=== PATIENT | male | born 1975 | race Caucasian/White ===

== ENCOUNTER 2016-04-13 05:37 | Inpatient (IN) | payer OTHER ==
[~2016-04-13] VITALS: Ht 190.5 cm; Wt 80.7 kg
[2016-04-13] VITALS (15 sets, daily range): BP systolic 124–142; BP diastolic 79–95
[~2016-04-13 05:37] MED LIST: CYCLOBENZAPRINE10 MG ORAL; FLUTICASONE PRO16 G1 NASAL; KLONOPIN1 MG ORAL; STOOL SOFTENER50 M1 PO; VICOD PO; ZYRTEC10 MG ORAL
[2016-04-13] MEDS ORDERED: SYNTHROID200 MCG ORAL (06:06)
[2016-04-13] MEDS ORDERED: Bacitracin 50000 Units Vial ONE (06:48)
[2016-04-13] MEDS ORDERED: Depo-Medrol 80mg Vial ONE (06:48)
[2016-04-13] MEDS ORDERED: LR 1000ml ONE (07:00)
[2016-04-13] MEDS ORDERED: fentaNYL 100 mcg/2 mL IV ONE (07:00)
[2016-04-13] MEDS ORDERED: Sterile Water Irrig 1000ml IRRIG ONE (07:00)
[2016-04-13] MEDS ORDERED: Propofol 10mg/ml 20ml IV ONE (07:00)
[2016-04-13] MEDS ORDERED: Midazolam 2mg/2ml Inj ONE (07:00)
[2016-04-13] MEDS ORDERED: NS Irrig 1000ml ONE (07:00)
[2016-04-13] MEDS ORDERED: Bupivacaine 0.25% Inj 30ml INJ ONE (07:20)
--- NOTE | 2016-04-13 07:21 | Pre-Procedure Note/Attestation ---
Pre-Procedure Note/Attestation Complete Prior to Procedure Planned Procedure: bilateral Procedure Narrative: left total replacement and right hip injection depomedrol and marcaine Attestation I attest that I discussed the nature of the procedure; its benefits; risks and complications; and alternatives (and the risks and benefits of such alternatives ), prior to the procedure, with the patient (or the patient's legal career services representative). I attest that, if there was a reasonable possibility of needing a blood transfusion, the patient (or the patient's legal career services representative) was given the [facility] standardized written summary, pursuant to the Carlos Callahan Blood Safety Act ([place] Health and Safety Code # 1645, as amended). I attest that I re-evaluated the patient just prior to the surgery and that there has been no change in the patient's H&P, except as documented below: ANGELIQUE WHITMAN Apr 13, 2016 07:21
--- NOTE | 2016-04-13 07:36 | Anethesia Preoperative Eval ---
Anesthesia Pre-op PMH/ROS General Date of Evaluation: Apr 13, 2016 Time of Evaluation: 07:15 Anesthesiologist: Donta ASA Score: ASA 3 Mallampati Score Class I : Soft palate, uvula, fauces, pillars visible Class II: Soft palate, uvula, fauces visible Class III: Soft palate, base of uvula visible Class IV: Only hard plate visible Mallampati Classification: Class II Surgeon: Babar Diagnosis: AVN left hip Surgical Procedure: Left THR, steroid injection right hip with fluoro Family History: no anesthesia problems Allergies: Coded Allergies: No Known Allergies (Unverified , 04/12/16) Medications: see eMAR Past Medical History Cardiovascular: Reports: HTN, Denies: CAD, RI, arrhythmia, other, valve dz Pulmonary: Denies: COPD, MANOJ, asthma, other Gastrointestinal/Genitourinary: Reports: other - S/P kidney transplant 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 Exam Physician Exam Last Vital Signs Date Time Temp Pulse Resp B/P Pulse Ox O2 Delivery O2 Flow Rate FiO2 04/13/16 06:08 98.1 88 20 131/84 98 Constitutional: NAD Neurologic: CN 2-12 intact Cardiovascular: RRR, no M/R/G Respiratory: CTA Gastrointestinal: S/NT/ND Airway Exam Mallampati Score: Class II MO: full ROM: full Teeth: intact Anesthesia Pre-op A/P Labs WNL Studies Pre-op Studies: EKG - NSR Risk Assessment & Plan Assessment: AVN left hip Plan: GA, LMA, lumbar plexus block for post op pain Status Change Before Surgery: No Pre-Antibiotics Drug: Ancef Given Within 1 Hr of Incision: Yes Time Given: 07:45 ROSINA LAZARO M.D. Apr 13, 2016 07:36
[2016-04-13] MEDS ORDERED: Norco 7.5mg/325mg tab ORAL PRN (07:45)
[2016-04-13] MEDS ORDERED: Milk of Magnesia 30ml Ud ORAL PRN (07:45)
[2016-04-13] MEDS ORDERED: Morphine Sulfate 4mg/ml Inj IVP PRN (07:45)
[2016-04-13] MEDS ORDERED: Morphine Sulfate 2mg/ml Inj IVP PRN ×3 (07:45→16:30)
[2016-04-13] MEDS ORDERED: Ropivacaine 5mg/ml Vial 20ml INJ ONE (08:44)
[2016-04-13] MEDS: Pericolace tab ORAL SCH ×2 (09:00→17:55)
[2016-04-13] MEDS: Docusate 100mg cap ORAL SCH ×3 (09:00→17:55)
[2016-04-13] MEDS: Enoxaparin 40mg Inj SUBQ SCH (09:00)
--- NOTE | 2016-04-13 09:40 | Immediate Post-Op Evaluation ---
Immediate Post-Op Evalulation Immediate Post-Op Evalulation Procedure: Left total hip replacement Date of Evaluation: Apr 13, 2016 Time of Evaluation: 09:45 IV Fluids: 900 Estimated Blood Loss: 100 Urinary Output: 150 Blood Pressure Systolic: 121 Blood Pressure Diastolic: 79 Pulse Rate: 90 Respiratory Rate: 19 O2 Sat by Pulse Oximetry: 100 Temperature (Fahrenheit): 97.3 Pain Score (1-10): 2 Nausea: No Vomiting: No Patient Status: awake, patent, none Hydration Status: adequate Drug: Ancef Given Within 1 Hr of Incision: Yes Time Given: 07:45 ROSINA LAZARO M.D. Apr 13, 2016 09:39
[2016-04-13] MEDS ORDERED: LR 1000ml 1,000 ML IVLG SCH (09:49)
[2016-04-13] MEDS ORDERED: Hydromorphone 0.5mg/0.5ml inj ONE (09:50)
[2016-04-13] MEDS ORDERED: LR 1000ml 1,000 ML IV SCH (10:00)
[2016-04-13] MEDS ORDERED: LORazepam Inj 2mg/ml 1ml IV PRN (10:00)
[2016-04-13] MEDS ORDERED: Meperidine 25mg/ml Inj IV PRN (10:00)
[2016-04-13] MEDS ORDERED: Hydromorphone 0.5mg/0.5ml inj IVP PRN (10:00)
--- NOTE | 2016-04-13 11:01 | General Progress Note ---
Assessment/Plan Assessment/Plan s/p THR AVN hip depression anxiety HTN hypothyroidism s/p kidney transplant 1. incentive spirometry 2. Lovenox 3. PT evaluation and therapy 4. Hydration 5. Pain management 6. discharge once stable with outpatient follow up Subjective Allergies: Coded Allergies: No Known Allergies (Unverified , 04/12/16) Subjective asked to follow up for medical Objective Last 24 Hour Vital Signs Date Time Temp Pulse Resp B/P Pulse Ox O2 Delivery O2 Flow Rate FiO2 04/13/16 10:40 83 14 127/83 100 Nasal Cannula 3.0 04/13/16 10:25 78 19 130/88 100 Nasal Cannula 3.0 04/13/16 10:20 97.3 04/13/16 10:10 80 16 127/87 100 Nasal Cannula 3.0 04/13/16 10:00 79 12 133/87 100 Nasal Cannula 3.0 04/13/16 09:50 84 28 129/92 100 Simple Mask 6.0 04/13/16 09:45 81 15 129/88 100 Simple Mask 6.0 04/13/16 09:40 83 18 124/82 100 Simple Mask 6.0 04/13/16 09:39 90 19 100 04/13/16 09:35 97.3 83 14 130/88 100 Simple Mask 6.0 04/13/16 06:08 98.1 88 20 131/84 98 Intake and Output 04/12/16 04/13/16 19:00 07:00 # Voids 1 Height (Feet): 6 Height (Inches): 3.00 Weight (Pounds): 178 Objective WDWN NAD clear breath sounds bilaterally without rhonchi or wheeze [id number] without MRG NABS nontender no HSM no CCE nonfocal MARCEL HILLIARD Apr 13, 2016 11:01
--- NOTE | 2016-04-13 11:30 | Diagnostic Imaging Report ---
Indication: Pain Technique: 2 views of the left hip Comparison: The Findings: There is flattening of the superior aspect of the left femoral head. There is subchondral sclerosis. The joint space is preserved. No definite acute fractures. No dislocations. Impression: Abnormal left femoral head, appearance is highly suggestive of avascular necrosis. Correlate with clinical findings
--- NOTE | 2016-04-13 11:38 | Diagnostic Imaging Report ---
Indication: PAIN Technique: Digital intraoperative images Comparison: None Findings: Intraoperative images demonstrate a needle projected over the midportion of the right femoral head neck junction Impression: Intraoperative imaging, as described
[2016-04-13] MEDS ORDERED: Cyclobenzaprine 10mg Tab ORAL PRN (12:30)
[2016-04-13 13:21] LABS: MEAN CORPUSCULAR HEMOGLOBIN 30.4 PG (27.0-31.0); MEAN CORPUSCULAR HGB CONC 32.5 G/DL (32.0-36.0); MEAN CORPUSCULAR VOLUME 94 FL (80-99); MEAN PLATELET VOLUME 6.8 FL (6.5-10.1); PLATELET COUNT 220 K/UL (150-450); RED BLOOD COUNT 4.04 M/UL (4.70-6.10); RED CELL DISTRIBUTION WIDTH 12.1 % (11.6-14.8); WHITE BLOOD COUNT 9.7 K/UL (4.8-10.8)
[2016-04-13 13:32] LABS: INR 1.1 (0.9-1.1); PROTHROMBIN TIME 10.9 SEC (9.30-11.50)
[2016-04-13 13:36] LABS: ANION GAP 12 (5-15); CARBON DIOXIDE 27 mEQ/L (20-30); CHLORIDE 100 mEQ/L (98-107); CREATININE 1.2 mg/dL (0.7-1.2); GLOMERULAR FILTRATION RATE > 60 mL/min (>60); HEMOLYSIS 6; POTASSIUM 5.3 mEQ/L (3.4-4.9); SODIUM 139 mEQ/L (135-145)
[2016-04-13 14:13] LABS: BAND NEUTROPHILS % (MANUAL) 0 % (0-8); BASOPHILS % (MANUAL) 0 % (0-2); EOSINOPHILS % (MANUAL) 0 % (0-3); LYMPHOCYTES % (MANUAL) 5 % (20-45); NEUTROPHILS % (MANUAL) 88 % (45-75); PLATELET ESTIMATE ADEQUATE; PLATELET MORPHOLOGY NORMAL; TOTAL CELLS COUNTED 100
[2016-04-13] MEDS ORDERED: D5 1/2NS w/KCl 20mEq 1,000 ML IV SCH (15:00)
[2016-04-13] MEDS ORDERED: ceFAZolin sod 1 GM in D5W 55 ML IV SCH (15:00)
--- NOTE | 2016-04-13 16:03 | Consultation ---
Consult Note Assessment/Plan A/ 1) Acute Gouty attack 2) Kidney transplant P/ 1) NSAIDS C/I 2/2 kidney transplant. Pain currently being managed with medication. Will order x-rays for further evaluation 2) Cont Abx as prescribed 3) Will follow Thank you Galen Galarza DPM Apr 13, 2016 16:03
[2016-04-13] MEDS: ceFAZolin sod 1 GM in D5W 55 ML IV SCH (16:10)
[2016-04-13] MEDS ORDERED: Naloxone 0.4mg/ml Inj IVP PRN ×2 (16:30→23:45)
[2016-04-13] MEDS ORDERED: Rate Change PCA 1 Each MISC PRN ×2 (16:30→23:45)
[2016-04-13] MEDS: PCA Morphine 1mg/ml 30 ML IV PRN ×2 (17:03→23:27)
[2016-04-13] MEDS: Morphine Sulfate 4mg/ml Inj SUBQ PRN ×2 (17:55→21:08)
--- NOTE | 2016-04-13 20:28 | Consultation ---
DATE OF CONSULTATION: 04/13/2016 CONSULTING PHYSICIAN: Galen Carty D.P.M. REQUESTING PHYSICIAN: Lalo Eckert M.D. REASON FOR CONSULTATION: Possible gouty attack, right foot. HISTORY OF PRESENT ILLNESS: The patient is a 41-year-old male, who was admitted today status post a total hip replacement of the left hip secondary to avascular necrosis. The patient states that he has had gouty attacks in the past that presented in similar fashion with some redness, pain, and swelling of the joint. The patient said that in his prior attacks, the condition auto resolved, was concerned about his pain level, but now it is again controlled by pain medication secondary to his procedure today. Currently, the patient is bed bound in a hip immobilizer. is at bedside. PAST MEDICAL HISTORY: Significant for avascular necrosis of left hip, depression, anxiety, hypertension, hypothyroidism, and status post kidney transplant. ALLERGIES: He has no known drug allergies. MEDICATIONS: Per MAR and currently include cefazolin, Lovenox, morphine for pain management and Mims for pain management. FAMILY HISTORY AND SOCIAL HISTORY: Noncontributory. REVIEW OF SYSTEMS: HEENT: The patient denies any headaches, blurred vision, or ringing in the ears. Cardiorespiratory: The patient denies any chest pain or shortness of breath. Genitourinary: The patient denies any urgency, frequency, burning upon urination, or hematuria. Gastrointestinal: The patient denies any constipation, diarrhea, or blood in the stools. PHYSICAL EXAMINATION: VITAL SIGNS: Currently temperature is 97.3, pulse is 81, respirations are 21, blood pressure is 133/79, and saturating 100% on room air. EXTREMITIES: Lower extremities, 2+ palpable dorsalis pedis and posterior tibial arteries noted on the right foot. There is mild edema noted on the first metatarsophalangeal joint region. There is no cyanosis of the toes noted. DERMATOLOGICAL: There is erythema and increased warmth noted on the first metatarsophalangeal joint region. Remaining dermatological exam is unremarkable. MUSCULOSKELETAL: The patient has 4/5 muscle strength noted in anterolateral and posterior muscle groups of the right lower extremity. No gross deformities are noted. NEUROLOGICAL: Protective thresholds intact on the right. LABORATORY AND DIAGNOSTIC DATA: INR is 1.1. White blood cell count is 9.7, hemoglobin and hematocrit is 12.3 and 37.8, and platelet count is 220,000. Glucose is 115, creatinine 1.2, and BUN is 19. No lower extremity imaging is noted. ASSESSMENT: 1. Acute gouty attack. 2. Status post kidney transplant. PLAN: 1. NSAIDS at this point is contraindicated due to his kidney transplant. The pain is currently being managed with medication. We will order x-rays for further evaluation. 2. Continue antibiotics as prescribed. 3. We will follow. Thank you for the courtesy of this consultation, Dr. Eckert. Galen Carty D.P.M. DR: JEREMIE JOB#: [id number] CC: ANAY
[2016-04-13] MEDS ORDERED: PCA shift volume MISC SCH (23:00)
[2016-04-14] VITALS: BP 133/87
[2016-04-14] MEDS: ceFAZolin sod 1 GM in D5W 55 ML IV SCH (00:15)
[2016-04-14] MEDS: PCA HYDROmorphone 1mg/ml 30 ML IV PRN (00:17)
[2016-04-14 04:00] VITALS: BP 133/87
[2016-04-14] MEDS: DiphenhydrAMINE 50mg/ml Inj IVP PRN ×3 (05:16→19:22)
[2016-04-14 07:05] LABS: BASOPHILS % (AUTO) 0.3 % (0.0-2.0); EOSINOPHILS % (AUTO) 0.3 % (0.0-3.0); LYMPHOCYTES % (AUTO) 10.9 % (20.0-45.0); MEAN CORPUSCULAR HEMOGLOBIN 31.1 PG (27.0-31.0); MEAN CORPUSCULAR HGB CONC 33.1 G/DL (32.0-36.0); MEAN CORPUSCULAR VOLUME 94 FL (80-99); MEAN PLATELET VOLUME 7.5 FL (6.5-10.1); MONOCYTES % (AUTO) 12.5 % (1.0-10.0); PLATELET COUNT 208 K/UL (150-450); RED BLOOD COUNT 3.54 M/UL (4.70-6.10); RED CELL DISTRIBUTION WIDTH 12.2 % (11.6-14.8); WHITE BLOOD COUNT 7.2 K/UL (4.8-10.8)
--- NOTE | 2016-04-14 07:14 | 48 Hour Post Anesthesia Eval ---
Post Anesthesia Evaluation Procedure: Left total hip replacement Date of Evaluation: Apr 14, 2016 Time of Evaluation: 07:12 Blood Pressure Systolic: 133 0: 80 Pulse Rate: 85 Respiratory Rate: 18 Temperature (Fahrenheit): 97.5 O2 Sat by Pulse Oximetry: 100 Airway: patent Nausea: No Vomiting: No Pain Intensity: 3 Hydration Status: adequate Cardiopulmonary Status: Stable Mental Status/LOC: patient returned to baseline Follow-up Care/Observations: 0 Post-Anesthesia Complications: 0 Follow-up care needed: N/A Sanjeev Francois MD Apr 14, 2016 07:13
[2016-04-14 07:21] LABS: INR 1.1 (0.9-1.1); PROTHROMBIN TIME 11.1 SEC (9.30-11.50)
[2016-04-14] MEDS: PCA shift volume MISC SCH ×3 (07:23→23:11)
[2016-04-14 07:26] LABS: ANION GAP 9 (5-15); CARBON DIOXIDE 30 mEQ/L (20-30); CHLORIDE 98 mEQ/L (98-107); GLOMERULAR FILTRATION RATE > 60 mL/min (>60); HEMOLYSIS 0; POTASSIUM 4.4 mEQ/L (3.4-4.9); SODIUM 137 mEQ/L (135-145)
[2016-04-14 08:00] VITALS: BP 135/87
[2016-04-14] MEDS: Docusate 100mg cap ORAL SCH ×3 (08:44→17:56)
[2016-04-14] MEDS: Pericolace tab ORAL SCH ×2 (08:44→17:56)
[2016-04-14] MEDS: Flonase Nasal Inhaler 16gm NASAL SCH (08:44)
[2016-04-14] MEDS: Enoxaparin 40mg Inj SUBQ SCH (08:49)
--- NOTE | 2016-04-14 09:02 | General Progress Note ---
Assessment/Plan Assessment/Plan s/p THR AVN hip depression anxiety HTN hypothyroidism s/p kidney transplant 1. incentive spirometry 2. Lovenox 3. PT evaluation and therapy 4. Hydration 5. Pain management with SUPERINTENDENT MEASUREMENT 6. discharge once stable with outpatient follow up Subjective Allergies: Coded Allergies: No Known Allergies (Unverified , 04/12/16) Subjective significant pain overnight on SUPERINTENDENT MEASUREMENT Objective Last 24 Hour Vital Signs Date Time Temp Pulse Resp B/P Pulse Ox O2 Delivery O2 Flow Rate FiO2 04/14/16 08:00 19 04/14/16 07:13 85 18 100 04/14/16 04:07 18 04/14/16 04:00 97.5 85 18 133/87 100 Nasal Cannula 2.0 04/14/16 00:00 18 04/14/16 00:00 97.7 91 18 133/87 99 Nasal Cannula 2.0 04/13/16 21:38 97.9 04/13/16 20:00 97.9 98 20 131/89 100 Room Air 04/13/16 17:44 97.9 04/13/16 16:20 97.9 87 20 142/95 100 Nasal Cannula 2.0 04/13/16 15:15 97.3 04/13/16 11:57 97.3 81 21 133/79 100 Room Air 04/13/16 11:10 97.8 78 16 131/87 100 Nasal Cannula 3.0 04/13/16 10:55 78 15 135/86 100 Nasal Cannula 3.0 04/13/16 10:55 97.8 04/13/16 10:40 83 14 127/83 100 Nasal Cannula 3.0 04/13/16 10:25 78 19 130/88 100 Nasal Cannula 3.0 04/13/16 10:20 97.3 04/13/16 10:10 80 16 127/87 100 Nasal Cannula 3.0 04/13/16 10:00 79 12 133/87 100 Nasal Cannula 3.0 04/13/16 09:50 84 28 129/92 100 Simple Mask 6.0 04/13/16 09:45 81 15 129/88 100 Simple Mask 6.0 04/13/16 09:40 83 18 124/82 100 Simple Mask 6.0 04/13/16 09:39 90 19 100 04/13/16 09:35 97.3 83 14 130/88 100 Simple Mask 6.0 Intake and Output 04/13/16 04/14/16 19:00 07:00 Intake Total 1100 ml 1490 ml Output Total 250 ml 3050 ml Balance 850 ml -1560 ml Intake Oral 1040 ml IV Total 1100 ml 450 ml Output Urine Total 150 ml 3050 ml Estimated Blood Loss 100 ml Laboratory Tests 04/13/16 13:15: White Blood Count 9.7, Red Blood Count 4.04L, Hemoglobin 12.3L, Hematocrit 37.8L , Mean Corpuscular Volume 94, Mean Corpuscular Hemoglobin 30.4, Mean Corpuscular Hemoglobin Concent 32.5, Red Cell Distribution Width 12.1, Platelet Count 220, Mean Platelet Volume 6.8, Neutrophils (%) (Auto) , Lymphocytes (%) ( Auto) , Monocytes (%) (Auto) , Eosinophils (%) (Auto) , Basophils (%) (Auto) , Differential Total Cells Counted 100, Neutrophils % (Manual) 88H, Lymphocytes % (Manual) 5L, Monocytes % (Manual) 7, Eosinophils % (Manual) 0, Basophils % ( Manual) 0, Band Neutrophils 0, Platelet Estimate Adequate, Platelet Morphology Normal, Red Blood Cell Morphology Normal, Prothrombin Time 10.9, Prothromb Time International Ratio 1.1, Activated Partial Thromboplast Time 28, Sodium Level 139, Potassium Level 5.3H, Chloride Level 100, Carbon Dioxide Level 27, Anion Gap 12, Blood Urea Nitrogen 19, Creatinine 1.2, Estimat Glomerular Filtration Rate > 60, Glucose Level 115H, Calcium Level 9.0 04/14/16 05:20: White Blood Count 7.2, Red Blood Count 3.54L, Hemoglobin 11.0L, Hematocrit 33.2L , Mean Corpuscular Volume 94, Mean Corpuscular Hemoglobin 31.1H, Mean Corpuscular Hemoglobin Concent 33.1, Red Cell Distribution Width 12.2, Platelet Count 208, Mean Platelet Volume 7.5, Neutrophils (%) (Auto) 76.0H, Lymphocytes ( %) (Auto) 10.9L, Monocytes (%) (Auto) 12.5H, Eosinophils (%) (Auto) 0.3, Basophils (%) (Auto) 0.3, Prothrombin Time 11.1, Prothromb Time International Ratio 1.1, Activated Partial Thromboplast Time 29, Sodium Level 137, Potassium Level 4.4, Chloride Level 98, Carbon Dioxide Level 30, Anion Gap 9, Blood Urea Nitrogen 11, Creatinine 1.0, Estimat Glomerular Filtration Rate > 60, Glucose Level 119H, Calcium Level 9.0 Height (Feet): 6 Height (Inches): 3.00 Weight (Pounds): 178 Objective WDWN NAD clear breath sounds bilaterally without rhonchi or wheeze [id number] without MRG NABS nontender no HSM no CCE nonfocal MARCEL HILLIARD Apr 14, 2016 09:02
--- NOTE | 2016-04-14 10:25 | Diagnostic Imaging Report ---
Indication: Pain Comparison: None Findings: 3 views of the right foot were obtained. There is soft tissue prominence at the first MTP joint. Cystlike a bunion. Alignment of the MTP joint is normal. No fracture or malalignment identified. Impression: Soft tissue prominence in the area of the first MTP joint likely a bunion.
--- NOTE | 2016-04-14 11:33 | General Progress Note ---
Progress Note Progress Note doing well ambulating XRAY post op not done---reinformed nurse this needs to be done stat neurovascular intact hgb 11 stable continue therapty ANGELIQUE WHITMAN Apr 14, 2016 11:33
--- NOTE | 2016-04-14 11:34 | Brief Operative Note ---
Immediate Post Operative Note Operative Note Chief Complaint: left hip pain Pre-op Diagnosis: left hip arthritis Procedure: left hip repalcement Post-op Diagnosis: left hip oa Post-op Diagnosis: same as pre-op Findings: consistent w/pre-op dx studies Surgeon: mian Anesthesia: general Specimen: yes Complications: none Condition: stable Estimated Blood Loss: minimal Implant(s) used?: Yes ANGELIQUE WHITMAN Apr 14, 2016 11:34
[2016-04-14 12:00] VITALS: BP 128/93
--- NOTE | 2016-04-14 13:58 | Podiatric Progress Note ---
Assessment/Plan Patient Michael Jaquez is a 41 year old male who was admitted on Apr 13, 2016 at 05:37 with Problems: Assessment/Plan A/ 1) Acute Gouty attack - resolving 2) Kidney transplant P/ 1) X-rays reviewed 2) Cont pain management 3) Will follow PRN Subjective Allergies: Coded Allergies: No Known Allergies (Unverified , 04/12/16) Subjective Patient in pain from going down to get hip x-ray. No pain in foot. Objective Exam Last 24 Hour Vital Signs Date Time Temp Pulse Resp B/P Pulse Ox O2 Delivery O2 Flow Rate FiO2 04/14/16 12:00 18 04/14/16 12:00 98.1 99 22 128/93 99 Room Air 04/14/16 08:00 97.9 88 20 135/87 97 Room Air 04/14/16 08:00 19 04/14/16 07:13 85 18 100 04/14/16 04:07 18 04/14/16 04:00 97.5 85 18 133/87 100 Nasal Cannula 2.0 04/14/16 00:00 18 04/14/16 00:00 97.7 91 18 133/87 99 Nasal Cannula 2.0 04/13/16 21:38 97.9 04/13/16 20:00 97.9 98 20 131/89 100 Room Air 04/13/16 17:44 97.9 04/13/16 16:20 97.9 87 20 142/95 100 Nasal Cannula 2.0 04/13/16 15:15 97.3 Laboratory Tests Test 04/14/16 05:20 White Blood Count 7.2 K/UL (4.8-10.8) Red Blood Count 3.54 M/UL (4.70-6.10) L Hemoglobin 11.0 G/DL (14.2-18.0) L Hematocrit 33.2 % (42.0-52.0) L Mean Corpuscular Volume 94 FL (80-99) Mean Corpuscular Hemoglobin 31.1 PG (27.0-31.0) H Mean Corpuscular Hemoglobin Concent 33.1 G/DL (32.0-36.0) Red Cell Distribution Width 12.2 % (11.6-14.8) Platelet Count 208 K/UL (150-450) Mean Platelet Volume 7.5 FL (6.5-10.1) Neutrophils (%) (Auto) 76.0 % (45.0-75.0) H Lymphocytes (%) (Auto) 10.9 % (20.0-45.0) L Monocytes (%) (Auto) 12.5 % (1.0-10.0) H Eosinophils (%) (Auto) 0.3 % (0.0-3.0) Basophils (%) (Auto) 0.3 % (0.0-2.0) Prothrombin Time 11.1 SEC (9.30-11.50) Prothromb Time International Ratio 1.1 (0.9-1.1) Activated Partial Thromboplast Time 29 SEC (23-33) Sodium Level 137 mEQ/L (135-145) Potassium Level 4.4 mEQ/L (3.4-4.9) Chloride Level 98 mEQ/L (98-107) Carbon Dioxide Level 30 mEQ/L (20-30) Anion Gap 9 (5-15) Blood Urea Nitrogen 11 mg/dL (7-23) Creatinine 1.0 mg/dL (0.7-1.2) Estimat Glomerular Filtration Rate > 60 mL/min (>60) Glucose Level 119 mg/dL (74-106) H Calcium Level 9.0 mg/dL (8.6-10.2) Dermatological Dermatological Narrative Erythema and edema right 1st MPJ improved, nearly resolved Galen Carty DPM Apr 14, 2016 13:58
--- NOTE | 2016-04-14 15:16 | Diagnostic Imaging Report ---
Indications: Status post left hip arthroplasty Technique: Portable AP view of the left hip Findings: Comparison: 04/13/16 Left femoral head and neck of the resected. Left acetabular and femoral prosthetic components appear well seated and in anatomic alignment. Femoral prosthetic component incompletely imaged. No abnormal surrounding lucency is present. Overlying soft tissues are swollen with gas bubbles. Overlying skin thomas are present.. IMPRESSION: Status post left hip arthroplasty, incompletely imaged.
[2016-04-14 16:00] VITALS: BP 139/88
[2016-04-14 20:00] VITALS: BP 136/86
[2016-04-14] MEDS ORDERED: DiphenhydrAMINE 50mg/ml Inj IVP PRN (21:30)
[2016-04-15] VITALS: BP 130/80
[2016-04-15] MEDS: PCA HYDROmorphone 1mg/ml 30 ML IV PRN (00:28)
[2016-04-15 05:57] LABS: BASOPHILS % (AUTO) 0.4 % (0.0-2.0); LYMPHOCYTES % (AUTO) 16.6 % (20.0-45.0); MEAN CORPUSCULAR HEMOGLOBIN 30.9 PG (27.0-31.0); MEAN CORPUSCULAR HGB CONC 33.1 G/DL (32.0-36.0); MEAN CORPUSCULAR VOLUME 93 FL (80-99); MEAN PLATELET VOLUME 7.5 FL (6.5-10.1); MONOCYTES % (AUTO) 15.9 % (1.0-10.0); NEUTROPHILS % (AUTO) 66.1 % (45.0-75.0); PLATELET COUNT 215 K/UL (150-450); RED BLOOD COUNT 3.68 M/UL (4.70-6.10); WHITE BLOOD COUNT 6.5 K/UL (4.8-10.8)
[2016-04-15] MEDS ORDERED: Milk of Magnesia 30ml Ud ORAL ONE (06:00)
[2016-04-15 06:19] LABS: ANION GAP 12 (5-15); CALCIUM 9.3 mg/dL (8.6-10.2); CARBON DIOXIDE 29 mEQ/L (20-30); CHLORIDE 93 mEQ/L (98-107); CREATININE 1.1 mg/dL (0.7-1.2); GLOMERULAR FILTRATION RATE > 60 mL/min (>60); HEMOLYSIS 0; POTASSIUM 3.7 mEQ/L (3.4-4.9); SODIUM 134 mEQ/L (135-145)
[2016-04-15] MEDS: PCA shift volume MISC SCH ×2 (07:00→15:27)
--- NOTE | 2016-04-15 07:21 | General Progress Note ---
Assessment/Plan Assessment/Plan s/p THR AVN hip depression anxiety HTN hypothyroidism s/p kidney transplant 1. incentive spirometry 2. Lovenox 3. PT evaluation and therapy 4. Hydration 5. Pain management with OBGYN NURSE 6. discharge once stable with outpatient follow up 7. MOM, dulcolax, movantik Subjective Allergies: Coded Allergies: No Known Allergies (Unverified , 04/12/16) Subjective significant pain and constipation Objective Last 24 Hour Vital Signs Date Time Temp Pulse Resp B/P Pulse Ox O2 Delivery O2 Flow Rate FiO2 04/15/16 04:00 16 04/15/16 00:00 98.1 93 18 130/80 96 Room Air 04/15/16 00:00 18 04/14/16 20:00 98.2 94 19 136/86 99 Room Air 04/14/16 20:00 16 04/14/16 16:00 98.2 97 19 139/88 97 Room Air 04/14/16 16:00 16 04/14/16 12:00 18 04/14/16 12:00 98.1 99 22 128/93 99 Room Air 04/14/16 08:00 97.9 88 20 135/87 97 Room Air 04/14/16 08:00 19 Intake and Output 04/14/16 04/15/16 19:00 07:00 Intake Total 450 ml 885 ml Output Total 1000 ml 2900 ml Balance -550 ml -2015 ml Intake Oral 360 ml IV Total 450 ml 525 ml Output Urine Total 1000 ml 2900 ml Laboratory Tests 04/15/16 04:25: White Blood Count 6.5, Red Blood Count 3.68L, Hemoglobin 11.4L, Hematocrit 34.4L , Mean Corpuscular Volume 93, Mean Corpuscular Hemoglobin 30.9, Mean Corpuscular Hemoglobin Concent 33.1, Red Cell Distribution Width 12.0, Platelet Count 215, Mean Platelet Volume 7.5, Neutrophils (%) (Auto) 66.1, Lymphocytes (% ) (Auto) 16.6L, Monocytes (%) (Auto) 15.9H, Eosinophils (%) (Auto) 1.0, Basophils (%) (Auto) 0.4, Sodium Level 134L, Potassium Level 3.7, Chloride Level 93L, Carbon Dioxide Level 29, Anion Gap 12, Blood Urea Nitrogen 9, Creatinine 1.1, Estimat Glomerular Filtration Rate > 60, Glucose Level 93, Calcium Level 9.3 Height (Feet): 6 Height (Inches): 3.00 Weight (Pounds): 178 Objective WDWN NAD clear breath sounds bilaterally without rhonchi or wheeze [id number] without MRG NABS nontender no HSM no CCE nonfocal MARCEL HILLIARD Apr 15, 2016 07:21
[2016-04-15 08:00] VITALS: BP 143/84
--- NOTE | 2016-04-15 08:14 | General Progress Note ---
Progress Note Progress Note doing good ambulating xray great but need to show whole prostehsis neurovascular intact cont therapy ANGELIQUE WHITMAN Apr 15, 2016 08:14
[2016-04-15] MEDS: Pericolace tab ORAL SCH (08:43)
[2016-04-15] MEDS: Docusate 100mg cap ORAL SCH (08:43)
[2016-04-15] MEDS: Flonase Nasal Inhaler 16gm NASAL SCH (08:44)
[2016-04-15] MEDS: Enoxaparin 40mg Inj SUBQ SCH (08:48)
[2016-04-15] MEDS ORDERED: Fleet's Mineral Oil Enema RECTAL ONE (09:00)
--- NOTE | 2016-04-15 09:11 | Consultation ---
History of Present Illness General Date patient seen: Apr 15, 2016 Present Illness Allergies: Coded Allergies: No Known Allergies (Unverified , 04/12/16) Medication History Scheduled Cetirizine Hcl* (Zyrtec*), 10 MG ORAL DAILY, (Reported) Cyclobenzaprine Hcl* (Flexeril*), 10 MG ORAL THREE TIMES A DAY, (Reported) Docusate Sodium (Stool Softener), 50 MG PO NEEDED, (Reported) Fluticasone Propionate* (Fluticasone Propionate*), 2 SPRAY NASAL DAILY, ( Reported) Levothyroxine Sodium (Synthroid), 250 MCG ORAL DAILY, (Reported) [Vicod], MG PO Q8, (Reported) Scheduled PRN Clonazepam* (Klonopin*), 1 MG ORAL TID PRN for For Anxiety, (Reported) Patient History Healthcare decision maker PATIENT Resuscitation status Full Code Advanced Directive on File Physical Exam Last 24 Hour Vital Signs Date Time Temp Pulse Resp B/P Pulse Ox O2 Delivery O2 Flow Rate FiO2 04/15/16 04:00 16 04/15/16 00:00 98.1 93 18 130/80 96 Room Air 04/15/16 00:00 18 04/14/16 20:00 98.2 94 19 136/86 99 Room Air 04/14/16 20:00 16 04/14/16 16:00 98.2 97 19 139/88 97 Room Air 04/14/16 16:00 16 04/14/16 12:00 18 04/14/16 12:00 98.1 99 22 128/93 99 Room Air Intake and Output 04/14/16 04/15/16 19:00 07:00 Intake Total 450 ml 885 ml Output Total 1000 ml 2900 ml Balance -550 ml -2015 ml Intake Oral 360 ml IV Total 450 ml 525 ml Output Urine Total 1000 ml 2900 ml Laboratory Tests Test 04/15/16 04:25 White Blood Count 6.5 K/UL (4.8-10.8) Red Blood Count 3.68 M/UL (4.70-6.10) L Hemoglobin 11.4 G/DL (14.2-18.0) L Hematocrit 34.4 % (42.0-52.0) L Mean Corpuscular Volume 93 FL (80-99) Mean Corpuscular Hemoglobin 30.9 PG (27.0-31.0) Mean Corpuscular Hemoglobin Concent 33.1 G/DL (32.0-36.0) Red Cell Distribution Width 12.0 % (11.6-14.8) Platelet Count 215 K/UL (150-450) Mean Platelet Volume 7.5 FL (6.5-10.1) Neutrophils (%) (Auto) 66.1 % (45.0-75.0) Lymphocytes (%) (Auto) 16.6 % (20.0-45.0) L Monocytes (%) (Auto) 15.9 % (1.0-10.0) H Eosinophils (%) (Auto) 1.0 % (0.0-3.0) Basophils (%) (Auto) 0.4 % (0.0-2.0) Sodium Level 134 mEQ/L (135-145) L Potassium Level 3.7 mEQ/L (3.4-4.9) Chloride Level 93 mEQ/L (98-107) L Carbon Dioxide Level 29 mEQ/L (20-30) Anion Gap 12 (5-15) Blood Urea Nitrogen 9 mg/dL (7-23) Creatinine 1.1 mg/dL (0.7-1.2) Estimat Glomerular Filtration Rate > 60 mL/min (>60) Glucose Level 93 mg/dL (74-106) Calcium Level 9.3 mg/dL (8.6-10.2) Height (Feet): 6 Height (Inches): 3.00 Weight (Pounds): 178 Medications Current Medications Medications (Trade) Dose Ordered Sig/Latoya Route PRN Reason Start Time Stop Time Status Last Admin Dose Admin Acetaminophen/ Hydrocodone Bitart 1 ea 1 ea Q4H PRN ORAL Moderate Pain (Pain Scale 4-6) 04/15/16 16:45 04/22/16 16:44 Bisacodyl (Dulcolax) 10 mg DAILYPRN PRN RECTAL Constipation 04/14/16 16:00 05/14/16 15:59 04/14/16 21:03 Cetirizine HCl (ZyrTEC) 10 mg DAILY ORAL 04/14/16 09:00 05/14/16 08:59 04/15/16 08:44 Clonazepam (KlonoPIN) 2 mg Q4H PRN ORAL For Anxiety 04/13/16 12:30 04/20/16 12:29 04/14/16 13:35 Cyclobenzaprine HCl (Flexeril) 10 mg THREE TIMES A DAY PRN ORAL Muscle Spasm 04/13/16 12:30 05/13/16 12:29 04/15/16 08:44 Diphenhydramine HCl (Benadryl) 50 mg Q6H PRN IVP Itching/Pruritis 04/14/16 21:30 05/14/16 21:29 Docusate Sodium (Colace) 100 mg THREE TIMES A DAY ORAL 04/13/16 09:00 05/13/16 08:59 04/15/16 08:43 Enoxaparin Sodium (Lovenox) 40 mg DAILY SUBQ 04/13/16 09:00 04/23/16 08:59 04/15/16 08:48 Fluticasone Propionate (Flonase) 2 spray DAILY NASAL 04/14/16 09:00 05/14/16 08:59 04/15/16 08:44 Hydromorphone HCl (Dilaudid) 2 mg Q4H PRN SUBQ Moderate Pain (Pain Scale 4-6) 04/13/16 23:45 04/15/16 23:44 04/14/16 13:45 Hydromorphone HCl (Dilaudid) 2 mg q3h PRN SUBQ Severe Pain (Pain Scale 7-10) 04/13/16 23:45 04/15/16 23:44 Hydromorphone HCl (CHILD CARE TEACHER Dilaudid) 30 ml @ 0 mls/hr Q24H PRN IV For Pain 04/13/16 23:45 04/15/16 23:44 04/15/16 00:28 Levothyroxine Sodium (Synthroid) 100 mcg DAILY@0630 ORAL 04/14/16 06:30 05/14/16 06:29 04/15/16 05:40 Levothyroxine Sodium (Synthroid) 150 mcg DAILY@0630 ORAL 04/14/16 06:30 05/14/16 06:29 04/15/16 05:40 Magnesium Hydroxide (Mom) 30 ml DAILYPRN PRN ORAL Constipation 04/13/16 07:45 05/13/16 07:44 04/14/16 13:36 Miscellaneous Medication (CHILD CARE TEACHER Rate Change) 1 ea DAILY PRN MISC rate change 04/13/16 23:45 04/15/16 23:44 Miscellaneous Medication (CHILD CARE TEACHER shift volume) 1 ea Q8HR@07,,23 MISC 04/14/16 07:00 04/16/16 06:59 04/15/16 07:00 Naloxone HCl (Narcan) 0.1 mg Q1M PRN IVP RR<10/min OR SBP<90 mmHg 04/13/16 23:45 04/15/16 23:44 Non-Formulary Medication (Non-Formulary Med) 1 ea DAILY ORAL 04/15/16 09:00 05/15/16 08:59 UNV Ondansetron HCl (Zofran) 4 mg Q6H PRN IVP Nausea & Vomiting 04/13/16 23:45 04/15/16 23:44 Senna/Docusate Sodium (Tereza-Colace) 1 ea TWICE A DAY ORAL 04/13/16 09:00 05/13/16 08:59 04/15/16 08:43 Sodium Chloride 1,000 ml @ 75 mls/hr [id number] IV 04/13/16 22:45 05/13/16 22:44 04/15/16 00:20 Assessment/Plan Assessment/Plan (1) Left hip pain (2) Left hip OA (3) Left hip Avascular necrosis (4) S/p Total hip replacement Seen Dictated. CHEN GOODWIN PMary Apr 15, 2016 09:11
[2016-04-15] MEDS ORDERED: Lactulose 20gm/30ml UDC ORAL PRN (09:15)
[2016-04-15] MEDS ORDERED: Norco 10mg/325mg tab ORAL PRN (09:15)
[2016-04-15] MEDS ORDERED: HYDROmorphone 1mg/ml Carpuject IVP PRN (09:15)
--- NOTE | 2016-04-15 11:09 | Diagnostic Imaging Report ---
Indications: Status post left hip arthroplasty Technique: Portable AP view of the left hip Findings: Comparison: Left hip radiographs 04/13/16 Left femoral head and neck have been resected. Left acetabular and femoral prosthetic components have been placed, appear well seated and in anatomic alignment. No abnormal surrounding lucency is present. Overlying soft tissues are swollen with gas bubbles. Overlying skin thomas are present. Wheatley catheter in place. Upper pelvis excluded from image. IMPRESSION: Status post left hip arthroplasty.
[2016-04-15 12:00] VITALS: BP 110/73
[2016-04-15] MEDS ORDERED: MOVANTIK 25 MG ORAL SCH (13:00)
[2016-04-15 16:00] VITALS: BP 120/86
[2016-04-15] MEDS ORDERED: Morphine Sulfate 4mg/ml Inj IVP PRN (16:30)
[2016-04-15] MEDS ORDERED: Norco 7.5mg/325mg tab ORAL PRN (16:45)
[2016-04-15] MEDS ORDERED: ASPIRIN325 MG ORAL ×2 (19:22→19:26)
[2016-04-15] MEDS ORDERED: 1/2 NS 1000ml IV ONE (20:29)
[2016-04-15] MEDS ORDERED: NS 275ml ONE (20:29)
[2016-04-15] MEDS ORDERED: Tubing IV Secondary IV ONE (20:29)
--- NOTE | 2016-04-15 21:28 | Consultation ---
DATE OF CONSULTATION: 04/15/2016 PAIN MANAGEMENT CONSULTATION CONSULTING PHYSICIAN: Lorin Lee M.D. REFERRING PHYSICIAN: Lalo Eckert M.D. CHIEF COMPLAINT: Left hip pain. HISTORY OF PRESENT ILLNESS: This is a [id number] who is being seen on the Med/Surg floor of [facility] for initial comprehensive pain management. The patient reports that he has been having left hip pain since July 2015. It is constant, acute pain, aching, dull, stabbing, 10/10 pain increased with movement. Nothing has been helping to relieve the pain. The patient is here under the care of Dr. Eckert and Dr. Lai status post left total hip replacement on Tuesday, which was done due to avascular necrosis and osteoarthritis. The patient reports a history of kidney transplant and history of thyroid carcinoma. He was taken Adolphus 10/325 mg 2 to 3 tablets a day as an outpatient. At this time, he is on a CRUSHER LOADER EQUIPMENT OPERATOR Dilaudid, which he has used 13 mg over in the last 24 hours, however, it causes severe constipation. He was started on Movantik as per Dr. Lai. Discussed with the patient about starting him on lactulose for constipation and increasing the Adolphus to 10/325 mg one tablet every 4 hours as needed for moderate pain and changing the Dilaudid 1 mg IV every 3 hours as needed for severe pain and adding Lidoderm patch to apply to the left hip 12 hours on and 12 hours off. The patient seems to understand and agrees and he is understanding with the plan. PAST MEDICAL HISTORY: Papillary thyroid carcinoma and kidney failure. PAST SURGICAL HISTORY: Total thyroidectomy and hip removal and kidney transplant. SOCIAL HISTORY: He drinks alcohol occasionally. Denies tobacco and IV drug abuse. ALLERGIES: No known drug allergies. MEDICATIONS: Zyrtec, Flexeril, stool softener, fluticasone, Synthroid, Adolphus and Klonopin. REVIEW OF SYSTEMS: Denies rash, fever, chills, sweating, dizziness, drowsiness, blurred vision, sore throat or change in weight. No shortness of breath or chest pain. No nausea, vomiting, or blood in the stool or urine. No bowel or bladder incontinence. No dysuria. He is complaining of constipation and left hip pain. PHYSICAL EXAMINATION: GENERAL: Alert, awake, and oriented x3. VITAL SIGNS: Blood pressure 130/80, heart rate is 83, oxygen saturation is 96%, and temperature 98.1 degrees Fahrenheit. Height is 6 feet 3 inches and weight is 170 pounds. HEENT: PERRLA. NECK: Range of motion is full in all directions. No tenderness. No adenopathy. LUNGS: Clear. HEART: Regular. ABDOMEN: Benign. EXTREMITIES: Back range of motion is decreased in flexion and extension due to patient's pain and condition with tenderness to paraspinal muscles. No tenderness to trapezius or rhomboid muscles. Upper extremity range of motion is full in all directions. Motor is intact. No cyanosis. No clubbing. No edema. Sensory is intact. Reflexes are unobtainable. Lower extremity range of motion is reduced due to the patient's condition with surgical wounds noted and thomas seen at the left hip with tenderness to palpation. No cyanosis. No clubbing. Sensory is intact. Reflexes are unobtainable. No adenopathy. ASSESSMENT AND PLAN: This is a 41-year-old male with left hip osteoarthritis, left hip avascular necrosis and left hip pain status post total hip replacement. The patient will be discontinued off the CRUSHER LOADER EQUIPMENT OPERATOR Dilaudid and Adolphus 7.5/325 mg and will be started on lactulose 30 g dose 4 times a day as needed for constipation, Adolphus 10/325 mg one tablet every 4 hours as needed for moderate pain and Dilaudid 1 mg IV every 3 hours as needed for severe pain and Lidoderm patch to be applied to the left hip 12 hours on and 12 hours off. The patient was discussed with Dr. Lee and Dr. Lee concurred. We will follow up the patient. Thank you very much for the courtesy of this consultation. Lorin Lee M.D. DELORES [place] DR: EUGENE JOB#: [id number] CC: ANAY
--- NOTE | 2016-04-16 11:48 | Discharge Summary ---
Discharge Summary Hospital Course Date of Admission Apr 13, 2016 at 05:37 Date of Discharge Apr 15, 2016 at 20:30 Admitting Diagnosis HPI Michael Jaquez is a 41 year old male who was admitted on Apr 13, 2016 at 05:37 for Left Hip Avn Hospital Course [id number] Discharge Discharge Disposition Patient was discharged to Home (01) Discharge Diagnoses: Yesi Tovar NP Apr 16, 2016 11:48
--- NOTE | 2016-04-16 21:28 | Operative Note - Dictated ---
DATE OF OPERATION: 04/13/2016 PREOPERATIVE DIAGNOSES: 1. Right hip effusion secondary to avascular necrosis, minor osteoarthritis. 2. Left hip end-stage osteoarthritis with flexion and adduction contracture. 3. Left hip avascular necrosis. POSTOPERATIVE DIAGNOSES: 1. Right hip effusion secondary to avascular necrosis, minor osteoarthritis. 2. Left hip end-stage osteoarthritis with flexion and adduction contracture. 3. Left hip avascular necrosis. PROCEDURES: 1. Right hip injection. 2. Left total hip replacement, modifier 22 secondary to difficulty with the Jamie Alloclassic #4 stem and 56 cup with 3.5 head neutral liner. 3. Adductor contracture release, modifier 22 secondary to difficulty. 4. Synovectomy, modifier 22 secondary to difficulty. SURGEON: Lalo Eckert M.D. LAUNDRY MACHINE TENDER: Unknown. DIRECTOR OF CARDIAC REHABILITATION: None. PREOPERATIVE NOTE: This is a pleasant gentleman, who has a very difficult problem. This young person had AVN and failed the cord decompression. He has end-stage OA with flexion contracture and adduction contracture. I explained to him the surgery and risks being infection, bleeding, anesthetic risks, neurovascular damage, DVT, PE, and failure of the operation. He had a kidney transplant and cannot take anti-inflammatories. Consents were obtained. OPERATIVE ROOM NOTE: Under the benefit of endotracheal intubation and general anesthetic, the right hip was injected with Depo-Medrol and Marcaine. We then prepped and draped the left hip and placed him in a lateral decubitus position. A gram of Ancef was given. He was prepped and draped. I made a posterolateral incision, incised through subcutaneous tissue down through short external rotators doing T-capsulectomy removing the labrum. The hip was significantly degenerated, the bone was . An osteotomy above the lesser trochanter. Then, started identifying the acetabulum. First, my and I started reaming, started with a #46, #48, #50, #52, #54, #55, accepting the #56 cup in 15 degrees of anteversion and 40 degrees of abduction. The actual cup was banged in. It was solid. There was no need for any screws. The liner was placed in, which was a 40 IB liner. I then started to work on the femur with 10 to 15 degrees of anteversion. I started broaching. I started with a 0, 1, 2, 1, 2, 2, 3, and a 4, placing a 4 and 4 was deemed to be perfect with a nice press-fit. I then looked in my x-rays and 4 was deemed to definitely be perfect. I then proceeded to place the actual 4 stem in after irrigating the wound copiously. First, neutral and then a 3.5 head in and reduced it. He had full range of motion, full stability. Leg lengths were equal in accordance to Dr. Jose Jean leg length comparison methods. I was very pleased and I used the normal head as an anatomic template. I then irrigated the wound copiously identifying the pre and post exposure was completely intact. There were no complications. Modifier 22 secondary to difficulty due to youth and age of the case and comorbidity with the kidney transplant. An adductor contracture release was done as well as a synovectomy. The patient went to recovery room in stable condition. There were no complications during this procedure. Lalo Eckert M.D. DR: BRUCE JOB#: [id number] CC:
--- NOTE | 2016-04-17 01:18 | Discharge Summary 2 SIG ---
DATE OF ADMISSION: 04/13/2016 DATE OF DISCHARGE: 04/15/2016 CONSULTANTS: 1. Derrick Lai M.D. 2. Galen Carty D.P.M. 3. Lorin Lee M.D. BRIEF HOSPITAL COURSE: The patient is a 41-year-old male with past medical history of renal transplant and osteonecrosis of the hip secondary to steroids, was admitted on 04/13/2016 and underwent left hip replacement. Postoperatively, he was given pain management and Lovenox for DVT prophylaxis. He was encouraged to use of incentive spirometry. Dr. Carty was consulted for evaluation of gout attack on the right foot. Unable to give NSAIDs secondary to kidney disease. Pain management was consulted. He was given bowel regimen for constipation. He was ambulating well with neurovascular intact. The patient was eventually discharged home to follow up as outpatient. FINAL DIAGNOSES: 1. Left hip avascular necrosis status post left hip replacement. 2. Depression. 3. Anxiety. 4. Hypertension. 5. Hypothyroidism. 6. Possible gout attack right foot. 7. Status post kidney transplant. 8. Constipation. Lalo Eckert M.D. I have been assigned to dictate discharge summary on this account and I was not involved in the patient's management. Yesi Tovar N.P. DR: ROMARIO JOB#: [id number] CC: ANAY
== END 2016-04-15 20:30 | disposition home or self-care (01) | DRG 470 ==
LOC: SDSOVERFLO 05:37 → 3E 11:33
PROC: 3E0U3BZ Introduction of Anesthetic Agent into Joints, Percutaneous Approach (ICD-10-PCS; principal; 2016-04-13 07:00)
PROC: 0SRB02A Replacement of Left Hip Joint with Metal on Polyethylene Synthetic Substitute, Uncemented, Open Approach (ICD-10-PCS; principal; 2016-04-13 07:00)
PROC: 0SBB0ZZ Excision of Left Hip Joint, Open Approach (ICD-10-PCS; principal; 2016-04-13 07:00)
PROC: 3E0U33Z Introduction of Anti-inflammatory into Joints, Percutaneous Approach (ICD-10-PCS; principal; 2016-04-13 07:00)
DX: M16.12 Unilateral primary osteoarthritis, left hip (principal); M87.851 Other osteonecrosis, right femur; I10 Essential (primary) hypertension; M87.852 Other osteonecrosis, left femur; Z94.0 Kidney transplant status; M24.552 Contracture, left hip; F41.9 Anxiety disorder, unspecified; F32.9 Major depressive disorder, single episode, unspecified; M10.9 Gout, unspecified; K59.00 Constipation, unspecified; Z85.850 Personal history of malignant neoplasm of thyroid; E89.0 Postprocedural hypothyroidism
CPT/HCPCS: 36415; 72170; 73502; 76000; 80048; 85007; 85025; 85610; 85730; 86850; 86900; 86901; 86920; 87081; 94003; 94150; C9399; J2180; J2250; J2405

== ENCOUNTER 2016-09-14 05:10 | Inpatient (IN) | payer OTHER ==
[2016-09-14] VITALS (15 sets, daily range): BP systolic 128–144; BP diastolic 62–98
[~2016-09-14] VITALS: Ht 190.5 cm; Wt 83.5 kg
[~2016-09-14 05:10] MED LIST changes: +ASPIRIN325 MG ORAL; +CIALIS5 MG PO; +COLCHICINE0.6 M1 PO; +PERCOCET 5-3251 EACH ORAL; +SYNTHROID200 MCG ORAL
[2016-09-14] MEDS ORDERED: ceFAZolin sod 2 GM in D5W 110 ML IV SCH (05:30)
[2016-09-14] MEDS ORDERED: DOCUSATE SODIU250 MG ORAL (05:56)
[2016-09-14] MEDS ORDERED: ZYRTEC10 MG ORAL (05:56)
[2016-09-14] MEDS ORDERED: SYNTHROID125 MCG ORAL (05:56)
[2016-09-14] MEDS ORDERED: NASACORT10.8 ML NS (05:56)
[2016-09-14] MEDS ORDERED: KLONOPIN1 MG ORAL (05:57)
[2016-09-14] MEDS ORDERED: Bacitracin 50000 Units Vial ONE (06:30)
[2016-09-14] MEDS ORDERED: Sterile Water Irrig 1000ml IRRIG ONE (07:00)
[2016-09-14] MEDS ORDERED: LR 1000ml ONE (07:00)
[2016-09-14] MEDS ORDERED: Zemuron 50mg/5ml Inj IV ONE (07:00)
[2016-09-14] MEDS ORDERED: Propofol 10mg/ml 20ml IV ONE (07:00)
[2016-09-14] MEDS ORDERED: Midazolam 2mg/2ml Inj ONE ×2 (07:00)
[2016-09-14] MEDS ORDERED: fentaNYL 100 mcg/2 mL IV ONE (07:00)
[2016-09-14] MEDS ORDERED: NS Irrig 1000ml ONE (07:00)
--- NOTE | 2016-09-14 07:12 | Pre-Procedure Note/Attestation ---
Pre-Procedure Note/Attestation Complete Prior to Procedure Planned Procedure: right Procedure Narrative: right total hip Indications for Procedure Pre-Operative Diagnosis: right hip arthrirtius Attestation I attest that I discussed the nature of the procedure; its benefits; risks and complications; and alternatives (and the risks and benefits of such alternatives ), prior to the procedure, with the patient (or the patient's legal pharmaceutical specialty representative). I attest that, if there was a reasonable possibility of needing a blood transfusion, the patient (or the patient's legal pharmaceutical specialty representative) was given the [facility] standardized written summary, pursuant to the [place] Blood Safety Act ([place] Health and Safety Code # 1645, as amended). I attest that I re-evaluated the patient just prior to the surgery and that there has been no change in the patient's H&P, except as documented below: ANGELIQUE WHITMAN Sep 14, 2016 07:12
[2016-09-14] MEDS ORDERED: Morphine Sulfate 2mg/ml Inj IVP PRN ×2 (07:30)
[2016-09-14] MEDS ORDERED: Morphine Sulfate 4mg/ml Inj IVP PRN (07:30)
--- NOTE | 2016-09-14 07:44 | Brief Operative Note ---
Immediate Post Operative Note Operative Note Pre-op Diagnosis: right hip arthrirtius Procedure: right hip pain Post-op Diagnosis: right hip replacement Post-op Diagnosis: same as pre-op Surgeon: mian Anesthesia: general Specimen: yes Complications: none Condition: stable Estimated Blood Loss: minimal Implant(s) used?: Yes ANGELIQUE WHITMAN Sep 14, 2016 07:44
[2016-09-14] MEDS ORDERED: Bupivacaine 0.25% Inj 30ml INJ ONE (07:48)
[2016-09-14] MEDS ORDERED: LR 1000ml 1,000 ML IVLG SCH (08:23)
[2016-09-14] MEDS ORDERED: LR 1000ml 1,000 ML IV SCH (08:30)
[2016-09-14] MEDS ORDERED: LORazepam Inj 2mg/ml 1ml IV PRN (08:30)
[2016-09-14] MEDS ORDERED: Meperidine 25mg/0.5ml Inj (FOR RIGORS ONLY) IV PRN (08:30)
[2016-09-14] MEDS ORDERED: DiphenhydrAMINE 50mg/ml Inj IVP PRN (08:30)
[2016-09-14] MEDS ORDERED: Hydromorphone 0.5mg/0.5ml inj IVP PRN (08:30)
--- NOTE | 2016-09-14 08:34 | Anethesia Preoperative Eval ---
Anesthesia Pre-op PMH/ROS General Date of Evaluation: Sep 14, 2016 Time of Evaluation: 07:00 Anesthesiologist: Donta ASA Score: ASA 3 Mallampati Score Class I : Soft palate, uvula, fauces, pillars visible Class II: Soft palate, uvula, fauces visible Class III: Soft palate, base of uvula visible Class IV: Only hard plate visible Mallampati Classification: Class II Surgeon: Babar Diagnosis: OA right hip Surgical Procedure: Right THR Family History: no anesthesia problems Allergies: Coded Allergies: No Known Allergies (Unverified , 04/12/16) Medications: see eMAR Past Medical History Cardiovascular: Reports: HTN, Denies: CAD, IA, arrhythmia, other, valve dz Pulmonary: Reports: other - Allergic rhinitis, Denies: COPD, MANOJ, asthma Gastrointestinal/Genitourinary: Reports: other - Hypertensive nephropathy s/p renal transplant, Denies: CRI, ESRD, GERD Neurologic/Psychiatric: Denies: CVA, TIA, dementia, depression/anxiety, other Endocrine: Reports: hypothyroidism - s/p thyroidectomy secondary to thyroid CA , steroids - 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 PSxH Narrative: Left THR, renal transplant Anesthesia Pre-op Phys. Exam Physician Exam Last Vital Signs Date Time Temp Pulse Resp B/P Pulse Ox O2 Delivery O2 Flow Rate FiO2 09/14/16 05:50 98.2 62 20 143/92 99 Room Air Constitutional: NAD Neurologic: CN 2-12 intact Cardiovascular: RRR, no M/R/G Respiratory: CTA Gastrointestinal: S/NT/ND Airway Exam Mallampati Score: Class II MO: full ROM: full Teeth: intact Anesthesia Pre-op A/P Labs WNL Studies Pre-op Studies: EKG - SR with suggested IWMI on EKG (doubtful) Risk Assessment & Plan Assessment: OA right hip in hypertensive renal transplant patient Plan: GA, lumbar plexus block for post op pain (surgeon request) Status Change Before Surgery: No Pre-Antibiotics Drug: Ancef Given Within 1 Hr of Incision: Yes Time Given: 07:30 ROSINA LAZARO M.D. Sep 14, 2016 08:34
--- NOTE | 2016-09-14 08:35 | Immediate Post-Op Evaluation ---
Immediate Post-Op Evalulation Immediate Post-Op Evalulation Procedure: Right THR Date of Evaluation: Sep 14, 2016 Time of Evaluation: 09:35 IV Fluids: 1500 Estimated Blood Loss: 100 Urinary Output: 400 Blood Pressure Systolic: 129 Blood Pressure Diastolic: 87 Pulse Rate: 80 Respiratory Rate: 13 O2 Sat by Pulse Oximetry: 97 Temperature (Fahrenheit): 98.5 Pain Score (1-10): 3 Nausea: No Vomiting: No Complications No complication Patient Status: awake, patent, extubated, none Hydration Status: adequate Drug: Ancef Given Within 1 Hr of Incision: Yes Time Given: 07:30 ROSINA LAZARO M.D. Sep 14, 2016 08:35
--- NOTE | 2016-09-14 08:55 | General Progress Note ---
Assessment/Plan Assessment/Plan (1) Right hip pain (2) Right hip OA (3) S/p Right THR Patient will be started on PHARMACY TECHNICIAN INSTRUCTOR Dilaudid 0.2mg Q6min, [place] 10/325mg and Dilaudid 1mg IV Q4H PRN mod-severe pain D/w Dr. Lee and he agrees Thank you for the courtesy of this consultation. Subjective Date patient seen: Sep 14, 2016 Allergies: Coded Allergies: No Known Allergies (Unverified , 04/12/16) Subjective REVIEW OF SYSTEMS: Denies rash, fever, chills, sweating, dizziness, drowsiness, blurred vision, sore throat or change in weight. No shortness of breath or chest pain. No nausea, vomiting, or blood in the stool or urine. No bowel or bladder incontinence. No dysuria. He is complaining of right hip pain. SUBJECTIVE: Patient is a known patient from prior admission and now returns under the care of Dr. Lopez for right hip replacement. We were consulted so patient would have pain control while here in the hospital. Objective Last 24 Hour Vital Signs Date Time Temp Pulse Resp B/P Pulse Ox O2 Delivery O2 Flow Rate FiO2 09/14/16 05:50 98.2 62 20 143/92 99 Room Air Height (Feet): 6 Height (Inches): 3.00 Weight (Pounds): 184 Objective GENERAL: Alert, awake, and oriented x3. HEENT: PERRLA. NECK: Range of motion is full in all directions. No tenderness. No adenopathy. LUNGS: Clear. HEART: Regular. ABDOMEN: Benign. Back: range of motion is decreased in flexion and extension due to patient's pain and condition with tenderness to paraspinal muscles. No tenderness to trapezius or rhomboid muscles. EXTREMITIES: Upper extremity range of motion is full in all directions. Motor is intact. No cyanosis. No clubbing. No edema. Sensory is intact. Reflexes are unobtainable. Lower extremity range of motion is reduced due to the patient's pain and condition. Right hip bandages applied with tenderness to palpation. No cyanosis. No clubbing. Sensory is intact. Reflexes are unobtainable. No adenopathy. CHEN GOODWIN Sep 14, 2016 08:55
[2016-09-14] MEDS ORDERED: D5 1/2NS w/KCl 20mEq 1,000 ML IV SCH ×2 (09:30→21:30)
[2016-09-14] MEDS ORDERED: Rate Change PCA 1 Each MISC PRN (10:00)
[2016-09-14] MEDS ORDERED: PCA HYDROmorphone 1mg/ml 30 ML IV PRN (10:00)
[2016-09-14] MEDS ORDERED: Naloxone 0.4mg/ml Inj IVP PRN (10:00)
--- NOTE | 2016-09-14 11:15 | Diagnostic Imaging Report ---
Indication: Pain Technique: 2 views of the right hip Comparison: Pelvis radiograph dated 04/14/2016 Findings: On one of 2 views, there is suggestion of significant abnormalities of the superior aspect of the right femoral head, with suggestion of flattening and osteochondral fracture deformity. This is much less apparent on the orthogonal image, however, is less apparent on the previous exam . No acute fractures. No dislocations. Joint spaces are preserved Impression: Findings on one of 2 views are suggestive of osteonecrosis of the right femoral head. However, it is uncertain the extent to which this is a real finding given lack of similar findings on the orthogonal view. Suspect findings are real, as patient has history of left hip osteonecrosis as well.
--- NOTE | 2016-09-14 11:57 | Diagnostic Imaging Report ---
Indication: POST-OP right hip total arthroplasty Technique: One view of the pelvis Comparison: 04/14/2016 Findings: Interim right hip total arthroplasty. Good anatomic alignment of the prosthesis. Retained air from surgical exposure is seen within the soft tissues. Wheatley catheter is present within the bladder. Prior left hip arthroplasty also again demonstrated Impression: Postoperative right hip, as described. No unusual features
[2016-09-14] MEDS: ceFAZolin 2gm/50ml Premix 50 ML IV SCH ×2 (15:01→23:44)
[2016-09-14] MEDS: DiphenhydrAMINE 50mg/ml Inj IVP PRN ×2 (16:02→23:43)
[2016-09-14] MEDS: Relistor 12mg/0.6ml Vial SUBQ SCH ×2 (18:00→23:49)
[2016-09-14] MEDS: PCA shift volume MISC SCH (19:00)
--- NOTE | 2016-09-14 20:28 | Cardiology Progress Note ---
Assessment/Plan Assessment/Plan [id number] s/p hip replacment s/p renal tx dn stem cell tx narcoatic induced constipation anxiety dvt ppx ivf to be dcd if eating adequatenlty pain control ambualtion per dr giraldo home if able to ambualte adn eat and have bm when ok with dr giraldo Objective Last 24 Hour Vital Signs Date Time Temp Pulse Resp B/P Pulse Ox O2 Delivery O2 Flow Rate FiO2 09/14/16 15:48 98.6 75 20 136/94 100 Room Air 09/14/16 14:22 98.3 62 20 132/71 100 Nasal Cannula 2.0 09/14/16 12:00 18 09/14/16 11:49 18 09/14/16 11:36 97.8 59 20 134/83 100 Nasal Cannula 2.0 09/14/16 11:24 18 09/14/16 11:15 18 09/14/16 10:47 98.1 60 20 132/62 100 Nasal Cannula 2.0 09/14/16 10:45 21 09/14/16 10:35 97.6 09/14/16 10:35 97.6 09/14/16 10:30 19 09/14/16 10:23 97.6 58 18 128/85 100 Nasal Cannula 3.0 09/14/16 10:15 21 09/14/16 10:10 58 14 135/90 100 Nasal Cannula 3.0 09/14/16 10:02 19 09/14/16 10:00 61 16 144/88 98 Nasal Cannula 3.0 09/14/16 09:50 62 16 133/84 100 Nasal Cannula 3.0 09/14/16 09:40 64 20 128/87 100 Simple Mask 6.0 09/14/16 09:35 68 21 129/87 100 Simple Mask 6.0 09/14/16 09:30 74 18 128/87 99 Simple Mask 6.0 09/14/16 09:30 80 13 97 09/14/16 09:25 97.6 81 19 129/87 99 Simple Mask 6.0 09/14/16 05:50 98.2 62 20 143/92 99 Room Air SIMON BOWMAN Sep 14, 2016 20:28
[2016-09-14] MEDS ORDERED: Lactulose 10gm/15ml UDC ORAL ONE (21:00)
[2016-09-15 04:30] VITALS: BP 130/79
--- NOTE | 2016-09-15 05:31 | Consultation ---
DATE OF CONSULTATION: 09/14/2016 CARDIOLOGY, INTERNAL MEDICINE CONSULTATION CONSULTING PHYSICIAN: Ryan Winkler M.D. REFERRING PHYSICIAN: Lalo Eckert M.D. REASON FOR EVALUATION: Postoperative medical care. HISTORY OF PRESENT ILLNESS: The patient is a 41-year-old gentleman who has had a series of medical problems as delineated below. The patient has been admitted and has undergone hip replacement surgery by Dr. Lopez on 09/14/2016 and he has done postoperative very well. He is not having any chest pain or shortness of breath. There is no PND, no orthopnea, no palpitations, no dizziness, no lightheadedness, no nausea, and no sore throat. He feels fine, in fact he feels better than he did the last time he had the same surgery a year ago he indicates. PAST MEDICAL HISTORY: Extensive includes a history of renal failure, secondary to hypertensive nephrosclerosis. He has got a history of kidney transplant and a year later he had stem cell transplant. He has been off of medications for some time now. He has a history of anxiety disorder, osteonecrosis, history of hypothyroidism, secondary to thyroid carcinoma, which was resected, history of erectile dysfunction, and history of diverticulosis. FAMILY HISTORY: Heart disease, hyperlipidemia, hypertension, father and brother. SOCIAL HISTORY: No drug use. He does drink alcoholic beverages a few, not excessive amounts he indicates. REVIEW OF SYSTEMS: Gastrointestinal: Negative. Genitourinary: Negative. Pulmonary: Negative. Constitutional: Negative. Neurological: Negative. Musculoskeletal: He just recovered from his surgery. PHYSICAL EXAMINATION: GENERAL: Shows to be a young gentleman, in no apparent respiratory distress. NECK: Supple. No jugular venous distention. LUNGS: Clear to auscultation and percussion. CARDIAC: S1 is normal. S2 is normal. Regular rate and rhythm. No heaves, thrills, gallops, or rubs are noted. ABDOMEN: Soft and nontender. Positive bowel sounds. EXTREMITIES: There is no clubbing, cyanosis, nor is there any edema. NEUROLOGIC: He is awake, alert, and responsive, in no apparent respiratory distress. LABORATORY AND DIAGNOSTIC DATA: Laboratory values none postoperatively. Preoperative laboratories, glucose of 93, sodium 136, potassium 4.5, chloride 101, bicarbonate 28, BUN of 22, and creatinine 1.18. Total protein 7.2 and albumin of 4.4. AST and ALT are normal. His INR was 1 and PTT of 27. White count of 5, hemoglobin 13.7, and platelet count of 268,000. Urinalysis is fairly unremarkable. His preop EKG shows normal sinus rhythm, leftward axis, no significant ST-T wave abnormalities, left posterior fascicular block cannot be excluded. His laboratory values include a chest x-ray, shows no cardiopulmonary disease processes being identified. ASSESSMENT/PLAN: 1. Right hip arthritis, status post hip replacement. 2. Renal failure history with history of renal transplant with stem-cell transplant as well. 3. Remote history of diverticulosis. 4. Narcotic-induced constipation history. 5. Anxiety disorder. Dr. Lopez, this patient was seen in cardiac consultation. He is doing quite well postoperatively. He is awake, alert, responsive, very anxious to get out of bed and start walking. He will be started back on his Klonopin as needed basis and he will receive some lactulose on as needed basis for his pre-emptive evaluation. The treatment of his upcoming constipation narcotics. Synthroid will be continued at 250 mcg and otherwise he is not on any medications that need to be treated for at this time. He is already checked with his fitness plan coordinator regarding any preoperative measures for his surgery, and he indicates none needed to be taken and he will not be given any nonsteroidals in light of the fact that he is post renal transplant. DVT prophylaxis with pneumatic compression stockings will be continued and low molecular weight heparin as a routine postoperatively. Once he starts POs, his intravenous fluids should be discontinued in the morning. Ambulation as per yourself. Thank you for allowing me to participate in the care of this patient. Ryan Winkler M.D. DR: ALYSON JOB#: [id number] CC:
[2016-09-15] MEDS: PCA shift volume MISC SCH ×2 (07:00→19:00)
[2016-09-15 07:19] LABS: BASOPHILS % (AUTO) 0.5 % (0.0-2.0); EOSINOPHILS % (AUTO) 1.3 % (0.0-3.0); LYMPHOCYTES % (AUTO) 14.5 % (20.0-45.0); MEAN CORPUSCULAR HEMOGLOBIN 31.3 PG (27.0-31.0); MEAN CORPUSCULAR HGB CONC 32.4 G/DL (32.0-36.0); MEAN CORPUSCULAR VOLUME 97 FL (80-99); MONOCYTES % (AUTO) 10.5 % (1.0-10.0); NEUTROPHILS % (AUTO) 73.3 % (45.0-75.0); PLATELET COUNT 198 K/UL (150-450); RED BLOOD COUNT 3.81 M/UL (4.70-6.10); WHITE BLOOD COUNT 7.8 K/UL (4.8-10.8)
[2016-09-15 07:46] LABS: ANION GAP 9 (5-15); CALCIUM 8.8 mg/dL (8.6-10.2); CARBON DIOXIDE 30 mEQ/L (20-30); CHLORIDE 98 mEQ/L (98-107); CREATININE 1.2 mg/dL (0.7-1.2); GLOMERULAR FILTRATION RATE > 60 mL/min (>60); HEMOLYSIS 4; POTASSIUM 4.1 mEQ/L (3.4-4.9); SODIUM 137 mEQ/L (135-145)
[2016-09-15] MEDS: DiphenhydrAMINE 50mg/ml Inj IVP PRN (08:04)
[2016-09-15 08:06] LABS: PROTHROMBIN TIME 10.2 SEC (9.30-11.50)
[2016-09-15] MEDS: Enoxaparin 40mg Inj SUBQ SCH (08:16)
--- NOTE | 2016-09-15 08:32 | General Progress Note ---
Assessment/Plan Assessment/Plan (1) Right hip pain (2) Right hip OA (3) S/p Right THR Patient will be changed to FRONT OFFICE SPECIALIST morphine 1mg Q6min and Morphine 4mg IV Q4H PRN mod-severe pain, discontinue Dilaudid, continue norco and start Neurontin D/w Dr. Lee and he agrees Subjective Date patient seen: Sep 15, 2016 Time patient seen: 08:00 - am Allergies: Coded Allergies: No Known Allergies (Unverified , 04/12/16) Subjective REVIEW OF SYSTEMS: Denies fever, chills, sweating, dizziness, drowsiness, blurred vision, sore throat or change in weight. No shortness of breath or chest pain. No nausea, vomiting, or blood in the stool or urine. No bowel or bladder incontinence. No dysuria. He is complaining of right hip pain and itching SUBJECTIVE: Pt is in room with . He reports that the Dilaudid has caused him itching, he has used 9mg in the last 24hrs. I d/w him change to morphine and he he understands. Objective Last 24 Hour Vital Signs Date Time Temp Pulse Resp B/P Pulse Ox O2 Delivery O2 Flow Rate FiO2 09/15/16 08:00 17 09/15/16 04:30 98.8 103 18 130/79 95 Room Air 09/15/16 04:00 18 09/15/16 00:00 18 09/14/16 23:37 98.6 92 18 134/86 96 Room Air 09/14/16 20:00 18 09/14/16 20:00 98.1 103 18 133/98 96 Room Air 09/14/16 16:00 18 09/14/16 15:48 98.6 75 20 136/94 100 Room Air 09/14/16 14:22 98.3 62 20 132/71 100 Nasal Cannula 2.0 09/14/16 12:00 18 09/14/16 11:49 18 09/14/16 11:36 97.8 59 20 134/83 100 Nasal Cannula 2.0 09/14/16 11:24 18 09/14/16 11:15 18 09/14/16 10:47 98.1 60 20 132/62 100 Nasal Cannula 2.0 09/14/16 10:45 21 09/14/16 10:35 97.6 09/14/16 10:35 97.6 09/14/16 10:30 19 09/14/16 10:23 97.6 58 18 128/85 100 Nasal Cannula 3.0 09/14/16 10:15 21 09/14/16 10:10 58 14 135/90 100 Nasal Cannula 3.0 09/14/16 10:02 19 09/14/16 10:00 61 16 144/88 98 Nasal Cannula 3.0 09/14/16 09:50 62 16 133/84 100 Nasal Cannula 3.0 09/14/16 09:40 64 20 128/87 100 Simple Mask 6.0 09/14/16 09:35 68 21 129/87 100 Simple Mask 6.0 09/14/16 09:30 74 18 128/87 99 Simple Mask 6.0 09/14/16 09:30 80 13 97 09/14/16 09:25 97.6 81 19 129/87 99 Simple Mask 6.0 Intake and Output 09/14/16 09/15/16 19:00 07:00 Intake Total 2140 ml Output Total 500 ml Balance 1640 ml Intake Oral 340 ml IV Total 1800 ml Output Urine Total 400 ml Estimated Blood Loss 100 ml Laboratory Tests 09/15/16 06:25: White Blood Count 7.8, Red Blood Count 3.81L, Hemoglobin 11.9L, Hematocrit 36.8L , Mean Corpuscular Volume 97, Mean Corpuscular Hemoglobin 31.3H, Mean Corpuscular Hemoglobin Concent 32.4, Red Cell Distribution Width 13.0, Platelet Count 198, Mean Platelet Volume 8.0, Neutrophils (%) (Auto) 73.3, Lymphocytes (% ) (Auto) 14.5L, Monocytes (%) (Auto) 10.5H, Eosinophils (%) (Auto) 1.3, Basophils (%) (Auto) 0.5, Prothrombin Time 10.2, Prothromb Time International Ratio 1.0, Activated Partial Thromboplast Time 27, Sodium Level 137, Potassium Level 4.1, Chloride Level 98, Carbon Dioxide Level 30, Anion Gap 9, Blood Urea Nitrogen 12, Creatinine 1.2, Estimat Glomerular Filtration Rate > 60, Glucose Level 107H, Calcium Level 8.8 Height (Feet): 6 Height (Inches): 3.00 Weight (Pounds): 184 Objective GENERAL: Alert, awake, and oriented x3. HEENT: PERRLA. NECK: Range of motion is full in all directions. No tenderness. No adenopathy. LUNGS: Clear. HEART: Regular. ABDOMEN: Benign. Back: range of motion is decreased in flexion and extension due to patient's pain and condition with tenderness to paraspinal muscles. No tenderness to trapezius or rhomboid muscles. EXTREMITIES: Upper extremity range of motion is full in all directions. Motor is intact. No cyanosis. No clubbing. No edema. Sensory is intact. Reflexes are unobtainable. Lower extremity range of motion is reduced due to the patient's pain and condition. Right hip bandages applied with tenderness to palpation. No cyanosis. No clubbing. Sensory is intact. Reflexes are unobtainable. No adenopathy. CHEN GOODWIN Sep 15, 2016 08:31
[2016-09-15 08:44] VITALS: BP 135/88
[2016-09-15] MEDS ORDERED: Relistor 12mg/0.6ml Vial SUBQ SCH (09:00)
--- NOTE | 2016-09-15 09:06 | General Progress Note ---
Progress Note Progress Note DOING WELL XRAYS PERFECT NEUROVASCULAR INTACT HGB STABLE NO CALF PAIN CONTINUE PHYSIO ANGELIQUE WHITMAN Sep 15, 2016 09:06
[2016-09-15] MEDS ORDERED: DiphenhydrAMINE 50mg/ml Inj IVP ONE (09:15)
[2016-09-15] MEDS ORDERED: DiphenhydrAMINE 50mg/ml Inj IVP PRN (09:15)
[2016-09-15] MEDS ORDERED: Rate Change PCA 1 Each MISC PRN (09:15)
[2016-09-15] MEDS ORDERED: Morphine Sulfate 4mg/ml Inj IVP PRN (09:15)
[2016-09-15] MEDS: PCA Morphine 1mg/ml 30 ML IV PRN ×2 (09:31→16:31)
--- NOTE | 2016-09-15 09:32 | History and Physical Report ---
DATE OF ADMISSION: 09/14/2016 INTERNAL MEDICINE CONSULTATION REASON FOR CONSULTATION: Medical management, status post right hip replacement. HISTORY OF PRESENT ILLNESS: The patient is a pleasant 41-year-old male with multiple medical problems including a history of prior left total hip replacement and kidney transplant. He has a history of a stem-cell transplant, papillary carcinoma, status post thyroidectomy and radioactive iodine. He was admitted yesterday for an elective right total hip replacement, which he tolerated well. He had some postoperative numbness, which is now resolved. He continues to have pain. Otherwise, he has no complaints. Denies any fever or chills. No chest pain. No shortness of breath. PAST MEDICAL HISTORY: As above. PAST SURGICAL HISTORY: As above. CURRENT MEDICATIONS: Reconciled and reviewed. MEDICATIONS: Current medications reconciled and reviewed. ALLERGIES: None. FAMILY HISTORY: Significant for history of kidney disease. SOCIAL HISTORY: Negative for tobacco, ethanol, or drugs. REVIEW OF SYSTEMS: General: No fevers or chills. HEENT: No headaches or visual changes. Cardiopulmonary: No chest pain. No shortness of breath. Gastrointestinal: No nausea or vomiting. Genitourinary: No urgency or frequency. Muscular: No muscular pain or swelling. Neurologic: No evidence of seizures. PHYSICAL EXAMINATION: GENERAL: The patient is a well-developed male, in no apparent distress. VITAL SIGNS: Temperature 98.8 degrees, blood pressure 130/79, pulse 103, and respirations 18. HEART: Regular rate and rhythm. LUNGS: Clear. ABDOMEN: Soft, nontender, and nondistended. EXTREMITIES: Without clubbing, cyanosis, or edema. There is no focal weakness or numbness noted to the lower extremities. LABORATORY DATA: White count 8, hemoglobin 11, hematocrit 36, and platelets of 198,000. Coagulation studies are normal. Sodium is 137, potassium 4.1, and creatinine of 1.2. ASSESSMENT: This is a pleasant male, status post uncomplicated right total hip replacement. He has a prior history of kidney transplant, papillary carcinoma, status post thyroidectomy and radioactive iodine. History of stem cell transplant. RECOMMENDATIONS: Continue DVT prophylaxis. Continue thyroid replacement therapy. The patient was written a prescription for Movantik, which works well for his opioid-induced constipation. Consider switch Dilaudid to morphine, which the patient states he has tolerated well in the past. Kalin Lima M.D. DR: RAJENDRA JOB#: [id number] CC:
--- NOTE | 2016-09-15 10:12 | 48 Hour Post Anesthesia Eval ---
Post Anesthesia Evaluation Procedure: Right THR Date of Evaluation: Sep 15, 2016 Time of Evaluation: 10:10 Blood Pressure Systolic: 135 0: 74 Pulse Rate: 68 Respiratory Rate: 20 Temperature (Fahrenheit): 97.6 O2 Sat by Pulse Oximetry: 99 Airway: patent Nausea: No Vomiting: No Pain Intensity: 3 Hydration Status: adequate Cardiopulmonary Status: stable Mental Status/LOC: patient returned to baseline Follow-up Care/Observations: n/a Post-Anesthesia Complications: none Follow-up care needed: N/A ALANIS CAMARILLO M.D. Sep 15, 2016 10:12
[2016-09-15] MEDS: NALOXEGOL OXALATE 25 MG ORAL SCH (11:47)
[2016-09-15 12:00] VITALS: BP 137/86
[2016-09-15 16:00] VITALS: BP 134/88
--- NOTE | 2016-09-15 17:46 | Operative Note - Dictated ---
DATE OF OPERATION: 09/14/2016 PREOPERATIVE DIAGNOSES: 1. Right hip end-stage osteoporosis. 2. Synovitis. 3. Right hip abduction contracture. POSTOPERATIVE DIAGNOSES: 1. Right hip end-stage osteoporosis. 2. Synovitis. 3. Right hip abduction contracture. PROCEDURE: 1. Right total hip replacement with Daisyueller #7 stem 56 mm cup modifier 22 secondary to difficulty due to young age. 2. Abductor contracture release. 3. Synovectomy. SURGEON: Lalo Eckert M.D. LATHE OPERATOR: Unknown. THREAD CUTTER TENDER: None. PREOPERATIVE NOTE: This is a pleasant gentleman, who has had kidney disease in the past. He has been suffering further. He has had issues associated with pain. I explained to him the surgery and risks being infection, bleeding, anesthetic risks, neurovascular damage, DVT, PE, and failure of the operation. The patient agreed and consents were obtained. OPERATIVE ROOM NOTE: Under the benefit of endotracheal intubation and general anesthetic, the patient's hip was prepped and draped in appropriate manner. The patient was placed in the lateral position. I then proceeded to make a posterior and lateral incision was made and incised through subcutaneous tissue down through extensor fascia hernando. I then placed a short external rotators. After release a short external rotator was identified. The hip fracture was quite swollen. A T-capsulectomy was done. The labrum was removed and hip was dislocated. The sciatic nerve was affected pre and post exposure and was completely intact. Then, we proceeded to dislocate the hip. An osteotomy done a fingerbreadth above the lesser trochanter taken off the femoral head. Femoral head with degenerative changes. I then proceeded to ream acetabulum, started with 27 proceeding upto 49 to 51 then 53 to 55 and #56. Cup was placed in 15 degrees of anteversion and 40 degrees of vertical . I then placed a 40 mm liner . Still working on the femur. reamer and then started using the broaches. I accepted the 7 stem and placed and according to Dr. Jose Jean leg length ____ equal and according to measurements with legs abducted contracture release was done. Modifier 22 secondary to young age. I closed the capsule with fiber wire. I closed the subcutaneous tissue with 2-0 Vicryl, and skin with thomas. The patient was taken to recovery room in stable condition. No complications. Lalo Eckert M.D. DR: LEORA JOB#: [id number] CC:
--- NOTE | 2016-09-15 18:08 | Cardiology Progress Note ---
Assessment/Plan Assessment/Plan 1. Right hip arthritis, status post hip replacement. 2. Renal failure history with history of renal transplant with stem-cell transplant as well 3. Remote history of diverticulosis. 4. Narcotic-induced constipation history. 5. Anxiety disorder 6. mild tachy 7. pruritis d/w dr amari dias d/w rn now on movantik d/w pharmacy will chekc orthostatic vital heart rate mildly increased bp is fine will ns bolus if positive ortho if neg ortho would order venous duplex in am he looks and feel good otherwise he wants to home tomorrow plan d/w pt Subjective Cardiovascular: Denies: chest pain, irregular heart rate, lightheadedness, palpitations Respiratory: Denies: shortness of breath Gastrointestinal/Abdominal: Reports: constipated, Denies: abdominal pain Genitourinary: Denies: burning Objective Last 24 Hour Vital Signs Date Time Temp Pulse Resp B/P Pulse Ox O2 Delivery O2 Flow Rate FiO2 09/15/16 16:00 98.4 106 20 134/88 99 Room Air 09/15/16 12:00 98.2 94 20 137/86 96 Room Air 09/15/16 12:00 18 09/15/16 10:12 68 20 99 09/15/16 08:44 98.2 99 20 135/88 95 Room Air 09/15/16 08:00 17 09/15/16 04:30 98.8 103 18 130/79 95 Room Air 09/15/16 04:00 18 09/15/16 00:00 18 09/14/16 23:37 98.6 92 18 134/86 96 Room Air 09/14/16 20:00 18 09/14/16 20:00 98.1 103 18 133/98 96 Room Air General Appearance: no apparent distress, alert - playign cards with friend Neck: no JVD Cardiovascular: normal rate, regular rhythm, tachycardia - mild Respiratory/Chest: lungs clear, normal breath sounds Abdomen: non tender, soft Extremities: non-tender Intake and Output 09/14/16 09/15/16 19:00 07:00 Intake Total 2140 ml Output Total 500 ml Balance 1640 ml Intake Oral 340 ml IV Total 1800 ml Output Urine Total 400 ml Estimated Blood Loss 100 ml Laboratory Tests Test 09/15/16 06:25 White Blood Count 7.8 K/UL (4.8-10.8) Red Blood Count 3.81 M/UL (4.70-6.10) L Hemoglobin 11.9 G/DL (14.2-18.0) L Hematocrit 36.8 % (42.0-52.0) L Mean Corpuscular Volume 97 FL (80-99) Mean Corpuscular Hemoglobin 31.3 PG (27.0-31.0) H Mean Corpuscular Hemoglobin Concent 32.4 G/DL (32.0-36.0) Red Cell Distribution Width 13.0 % (11.6-14.8) Platelet Count 198 K/UL (150-450) Mean Platelet Volume 8.0 FL (6.5-10.1) Neutrophils (%) (Auto) 73.3 % (45.0-75.0) Lymphocytes (%) (Auto) 14.5 % (20.0-45.0) L Monocytes (%) (Auto) 10.5 % (1.0-10.0) H Eosinophils (%) (Auto) 1.3 % (0.0-3.0) Basophils (%) (Auto) 0.5 % (0.0-2.0) Prothrombin Time 10.2 SEC (9.30-11.50) Prothromb Time International Ratio 1.0 (0.9-1.1) Activated Partial Thromboplast Time 27 SEC (23-33) Sodium Level 137 mEQ/L (135-145) Potassium Level 4.1 mEQ/L (3.4-4.9) Chloride Level 98 mEQ/L (98-107) Carbon Dioxide Level 30 mEQ/L (20-30) Anion Gap 9 (5-15) Blood Urea Nitrogen 12 mg/dL (7-23) Creatinine 1.2 mg/dL (0.7-1.2) Estimat Glomerular Filtration Rate > 60 mL/min (>60) Glucose Level 107 mg/dL (74-106) H Calcium Level 8.8 mg/dL (8.6-10.2) SIMON BOWMAN Sep 15, 2016 18:08
[2016-09-15] MEDS ORDERED: NS 250 ML IVPB ONE (18:20)
[2016-09-15 20:00] VITALS: BP 152/101
[2016-09-15] MEDS ORDERED: Norco 10mg/325mg tab ORAL PRN (23:45)
[2016-09-16] VITALS: BP 132/86
[2016-09-16 02:26] LABS: ALANINE AMINOTRANSFERASE 17 U/L (3-41); ALBUMIN/GLOBULIN RATIO 0.9 (1.0-2.7); ANION GAP 9 (5-15); ASPARTATE AMINO TRANSFERASE 26 U/L (5-40); CALCIUM 8.8 mg/dL (8.6-10.2); CARBON DIOXIDE 28 mEQ/L (20-30); CHLORIDE 98 mEQ/L (98-107); CREATININE 1.2 mg/dL (0.7-1.2); GLOMERULAR FILTRATION RATE > 60 mL/min (>60); HEMOLYSIS 1; SODIUM 135 mEQ/L (135-145); TOTAL PROTEIN 6.2 g/dL (6.6-8.7)
[2016-09-16 02:28] LABS: BASOPHILS % (AUTO) 0.8 % (0.0-2.0); EOSINOPHILS % (AUTO) 0.9 % (0.0-3.0); LYMPHOCYTES % (AUTO) 16.1 % (20.0-45.0); MEAN CORPUSCULAR HEMOGLOBIN 31.8 PG (27.0-31.0); MEAN CORPUSCULAR HGB CONC 33.9 G/DL (32.0-36.0); MEAN CORPUSCULAR VOLUME 94 FL (80-99); MEAN PLATELET VOLUME 7.4 FL (6.5-10.1); MONOCYTES % (AUTO) 14.3 % (1.0-10.0); PLATELET COUNT 192 K/UL (150-450); RED BLOOD COUNT 3.75 M/UL (4.70-6.10); RED CELL DISTRIBUTION WIDTH 12.5 % (11.6-14.8); WHITE BLOOD COUNT 8.9 K/UL (4.8-10.8)
[2016-09-16 02:49] LABS: APPEARANCE,URINE CLEAR; KETONES,URINE NEGATIVE (NEGATIVE); LEUKOCYTE ESTERASE ,URINE NEGATIVE (NEGATIVE); NITRITE,URINE NEGATIVE (NEGATIVE); PH,URINE 7 (4.5-8.0); PROTEIN,URINE NEGATIVE (NEGATIVE); UROBILINOGEN,URINE NORMAL MG/DL (0.0-1.0)
[2016-09-16 03:17] LABS: BACTERIA,URINE OCCASIONAL /HPF; RBC,URINE 0 /HPF (0 - 0); SQUAMOUS EPITHELIAL CELL,UR OCCASIONAL /LPF (NONE/OCC); WBC,URINE 0 /HPF (0 - 0)
[2016-09-16 04:00] VITALS: BP 133/75
[2016-09-16] MEDS ORDERED: Vancomycin 1gm inj IVPB ONE (04:17)
[2016-09-16] MEDS ORDERED: Vancomycin 1 GM in D5W 275 ML IVPB ONE (06:00)
[2016-09-16] MEDS: PCA shift volume MISC SCH (07:30)
[2016-09-16 08:00] VITALS: BP 130/77
--- NOTE | 2016-09-16 08:41 | General Progress Note ---
Assessment/Plan Assessment/Plan (1) Right hip pain (2) Right hip OA (3) S/p Right THR Patient will be discontinued off the EMAIL MARKETER morphine, Morphine and norco and start on Percocet 5-10/325mg Tab Q4H PrN Mod to severe pain. Continue Neurontin No Rx for home needed has percocet at home as per pt. D/w Dr. Lee and he agrees Subjective Date patient seen: Sep 16, 2016 Time patient seen: 07:00 - am Allergies: Coded Allergies: No Known Allergies (Unverified , 04/12/16) Subjective REVIEW OF SYSTEMS: Denies fever, chills, sweating, dizziness, drowsiness, blurred vision, sore throat or change in weight. No shortness of breath or chest pain. No nausea, vomiting, or blood in the stool or urine. No bowel or bladder incontinence. No dysuria. He is complaining of right hip pain. SUBJECTIVE: Pt reports that the pain has been reducing and has been doing PT well. I d/w him about discontinuing the EMAIL MARKETER and he understands. Objective Last 24 Hour Vital Signs Date Time Temp Pulse Resp B/P Pulse Ox O2 Delivery O2 Flow Rate FiO2 09/16/16 04:00 98.6 96 20 133/75 98 Room Air 09/16/16 04:00 17 09/16/16 01:55 98.2 09/16/16 00:00 100.2 103 18 132/86 100 Room Air 09/16/16 00:00 17 09/15/16 20:00 99.7 110 20 152/101 100 Room Air 09/15/16 20:00 17 09/15/16 16:00 98.4 106 20 134/88 99 Room Air 09/15/16 12:00 98.2 94 20 137/86 96 Room Air 09/15/16 12:00 18 09/15/16 10:12 68 20 99 09/15/16 08:44 98.2 99 20 135/88 95 Room Air Intake and Output 09/15/16 09/16/16 19:00 07:00 Intake Total 980 ml 183.708 ml Output Total 3400 ml 1200 ml Balance -2420 ml -1016.292 ml Intake Oral 980 ml IV Total 183.708 ml Output Urine Total 3400 ml 1200 ml Laboratory Tests 09/16/16 01:45: White Blood Count 8.9, Red Blood Count 3.75L, Hemoglobin 11.9L, Hematocrit 35.2L , Mean Corpuscular Volume 94, Mean Corpuscular Hemoglobin 31.8H, Mean Corpuscular Hemoglobin Concent 33.9, Red Cell Distribution Width 12.5, Platelet Count 192, Mean Platelet Volume 7.4, Neutrophils (%) (Auto) 68.0, Lymphocytes (% ) (Auto) 16.1L, Monocytes (%) (Auto) 14.3H, Eosinophils (%) (Auto) 0.9, Basophils (%) (Auto) 0.8, Sodium Level 135, Potassium Level 4.0, Chloride Level 98, Carbon Dioxide Level 28, Anion Gap 9, Blood Urea Nitrogen 10, Creatinine 1.2 , Estimat Glomerular Filtration Rate > 60, Glucose Level 117H, Calcium Level 8.8 , Total Bilirubin 0.7, Aspartate Amino Transf (AST/SGOT) 26, Alanine Aminotransferase (ALT/SGPT) 17, Alkaline Phosphatase 62, Total Protein 6.2L, Albumin 3.0L, Globulin 3.2, Albumin/Globulin Ratio 0.9L 09/16/16 02:00: Urine Color Pale yellow, Urine Appearance Clear, Urine pH 7, Urine Specific [place] 1.010, Urine Protein Negative, Urine Glucose (UA) Negative, Urine Ketones Negative, Urine Occult Blood Negative, Urine Nitrite Negative, Urine Bilirubin Negative, Urine Urobilinogen Normal, Urine Leukocyte Esterase Negative , Urine RBC 0, Urine WBC 0, Urine Squamous Epithelial Cells Occasional, Urine Bacteria Occasional Height (Feet): 6 Height (Inches): 3.00 Weight (Pounds): 184 Objective GENERAL: Alert, awake, and oriented x3. HEENT: PERRLA. NECK: Range of motion is full in all directions. No tenderness. No adenopathy. LUNGS: Clear. HEART: Regular. ABDOMEN: Benign. Back: range of motion is decreased in flexion and extension due to patient's pain and condition with tenderness to paraspinal muscles. No tenderness to trapezius or rhomboid muscles. EXTREMITIES: Upper extremity range of motion is full in all directions. Motor is intact. No cyanosis. No clubbing. No edema. Sensory is intact. Reflexes are unobtainable. Lower extremity range of motion is reduced due to the patient's pain and condition. Right hip bandages applied with tenderness to palpation. No cyanosis. No clubbing. Sensory is intact. Reflexes are unobtainable. No adenopathy. CHEN GOODWIN. Sep 16, 2016 08:41
[2016-09-16] MEDS: NALOXEGOL OXALATE 25 MG ORAL SCH (08:42)
[2016-09-16] MEDS: PCA Morphine 1mg/ml 30 ML IV PRN (08:43)
[2016-09-16] MEDS: Enoxaparin 40mg Inj SUBQ SCH (08:44)
--- NOTE | 2016-09-16 08:51 | General Progress Note ---
Assessment/Plan Problem List: (1) Hip arthritis ICD Codes: M19.90 - Unspecified osteoarthritis, unspecified site SNOMED: [id number], [id number] Status: stable, progressing Assessment/Plan stable ok for dc from med standpoint fever self limited. ua clear. nml wbc Subjective ROS Limited/Unobtainable: No Constitutional: Reports: fever HEENT: Reports: no symptoms Cardiovascular: Reports: no symptoms Respiratory: Reports: no symptoms Gastrointestinal/Abdominal: Reports: constipated Genitourinary: Reports: no symptoms Neurologic/Psychiatric: Reports: pre-existing deficit Endocrine: Reports: no symptoms Hematologic/Lymphatic: Reports: no symptoms Allergies: Coded Allergies: No Known Allergies (Unverified , 04/12/16) All Systems: reviewed and negative except above Subjective had low grade temp. self limited. no cp/sob. no chills. wbc normal, UA clear. + BM Objective Last 24 Hour Vital Signs Date Time Temp Pulse Resp B/P Pulse Ox O2 Delivery O2 Flow Rate FiO2 09/16/16 04:00 98.6 96 20 133/75 98 Room Air 09/16/16 04:00 17 09/16/16 01:55 98.2 09/16/16 00:00 100.2 103 18 132/86 100 Room Air 09/16/16 00:00 17 09/15/16 20:00 99.7 110 20 152/101 100 Room Air 09/15/16 20:00 17 09/15/16 16:00 98.4 106 20 134/88 99 Room Air 09/15/16 12:00 98.2 94 20 137/86 96 Room Air 09/15/16 12:00 18 09/15/16 10:12 68 20 99 Intake and Output 09/15/16 09/16/16 19:00 07:00 Intake Total 980 ml 183.708 ml Output Total 3400 ml 1200 ml Balance -2420 ml -1016.292 ml Intake Oral 980 ml IV Total 183.708 ml Output Urine Total 3400 ml 1200 ml Laboratory Tests 09/16/16 01:45: White Blood Count 8.9, Red Blood Count 3.75L, Hemoglobin 11.9L, Hematocrit 35.2L , Mean Corpuscular Volume 94, Mean Corpuscular Hemoglobin 31.8H, Mean Corpuscular Hemoglobin Concent 33.9, Red Cell Distribution Width 12.5, Platelet Count 192, Mean Platelet Volume 7.4, Neutrophils (%) (Auto) 68.0, Lymphocytes (% ) (Auto) 16.1L, Monocytes (%) (Auto) 14.3H, Eosinophils (%) (Auto) 0.9, Basophils (%) (Auto) 0.8, Sodium Level 135, Potassium Level 4.0, Chloride Level 98, Carbon Dioxide Level 28, Anion Gap 9, Blood Urea Nitrogen 10, Creatinine 1.2 , Estimat Glomerular Filtration Rate > 60, Glucose Level 117H, Calcium Level 8.8 , Total Bilirubin 0.7, Aspartate Amino Transf (AST/SGOT) 26, Alanine Aminotransferase (ALT/SGPT) 17, Alkaline Phosphatase 62, Total Protein 6.2L, Albumin 3.0L, Globulin 3.2, Albumin/Globulin Ratio 0.9L 09/16/16 02:00: Urine Color Pale yellow, Urine Appearance Clear, Urine pH 7, Urine Specific [place] 1.010, Urine Protein Negative, Urine Glucose (UA) Negative, Urine Ketones Negative, Urine Occult Blood Negative, Urine Nitrite Negative, Urine Bilirubin Negative, Urine Urobilinogen Normal, Urine Leukocyte Esterase Negative , Urine RBC 0, Urine WBC 0, Urine Squamous Epithelial Cells Occasional, Urine Bacteria Occasional Height (Feet): 6 Height (Inches): 3.00 Weight (Pounds): 184 General Appearance: WD/WN, alert Neck: supple Cardiovascular: regular rhythm Respiratory/Chest: lungs clear Abdomen: normal bowel sounds, non tender, soft, no organomegaly Edema: no edema noted Arm (L), no edema noted Arm (R), no edema noted Leg (L), no edema noted Leg (R), no edema noted Pedal (L), no edema noted Pedal (R), no edema noted Generalized JAIMIE MONTIEL Sep 16, 2016 08:51
[2016-09-16] MEDS ORDERED: Oxycodone/Acetaminophen 5-325 ORAL PRN (09:00)
[2016-09-16] MEDS ORDERED: Docusate 250mg cap ORAL ONE (09:00)
[2016-09-16] MEDS ORDERED: Morphine Sulfate 4mg/ml Inj IVP PRN (09:15)
[2016-09-16] MEDS ORDERED: HYDROmorphone 1mg/ml Carpuject IVP PRN (10:00)
--- NOTE | 2016-09-16 10:21 | Diagnostic Imaging Report ---
Indication: Shortness of breath Technique: Single portable AP view of the chest. Findings: Comparison: None. Linear densities left lung base. Right lung clear. Lungs normally, symmetrically inflated. The bones and extra pulmonary soft tissues, cardiomediastinal silhouette, pulmonary vasculature, and pleural surfaces are unremarkable. IMPRESSION: Subsegmental atelectasis versus scarring left lung base Otherwise negative portable AP chest.
[2016-09-16 11:32] VITALS: BP 128/78
[2016-09-16] MEDS ORDERED: Tubing IV Secondary IV ONE (15:25)
[2016-09-16] MEDS ORDERED: D5W 275ml ONE (15:25)
[2016-09-16] MEDS ORDERED: Docusate 100mg cap ORAL SCH (18:00)
[2016-09-17] MEDS ORDERED: Norco 10mg/325mg tab ORAL PRN (09:15)
--- NOTE | 2016-09-17 16:02 | Discharge Summary ---
Discharge Summary Hospital Course Date of Admission Sep 14, 2016 at 05:10 Date of Discharge Sep 16, 2016 at 15:26 Admitting Diagnosis HPI Michael Jaquez is a 41 year old male who was admitted on Sep 14, 2016 at 05:10 for Right Hip Osteoarthritis Hospital Course [id number] Discharge Discharge Disposition Patient was discharged to Home (01) Discharge Diagnoses: Yesi Tovar NP Sep 17, 2016 16:02
--- NOTE | 2016-09-18 08:31 | Discharge Summary 2 SIG ---
DATE OF ADMISSION: 09/14/2016 DATE OF DISCHARGE: 09/16/2016 SURGEON: Lalo Eckert M.D. CONSULTANTS: 1. Ryan Winkler M.D. 2. Lorin Lee M.D. BRIEF HOSPITAL COURSE: The patient is a pleasant 41-year-old male with multiple medical problems including history of prior left total hip replacement and kidney transplant. He has a history of stem cell transplant, papillary carcinoma, status post thyroidectomy, and radioactive iodine. On 09/14/2016, he underwent an elective right total hip replacement by Dr. Eckert. Postoperatively, he had numbness, which eventually resolved. He was given pain management consisting of MAINTAINER OPERATOR with morphine, [place], and Neurontin. Dilaudid was discontinued as the patient reported itching after using Dilaudid. He was given DVT prophylaxis with pneumatic compression stockings and [id number] heparin. He underwent physical and occupational therapy and catheter was discontinued. Diet was eventually advanced. He had some slight low-grade fever, which eventually resolved. WBC was normal. He was eventually discharged home to continue Xarelto 15 mg p.o. for one more week. FINAL DIAGNOSES: 1. Hip arthritis, status post right hip total replacement. 2. Renal failure with prior renal transplant and stem cell transplant. 3. Narcotic-induced constipation. 4. Anxiety disorder. Kalin Lima M.D. I have been assigned to dictate discharge summary on this account and I was not involved in the patient's management. Yesi Tovar N.P. DR: Manuel JOB#: [id number] CC:
== END 2016-09-16 15:26 | disposition home or self-care (01) | DRG 470 ==
LOC: SDSOVERFLO 05:10 → EDSTATUS 07:00 → 3E 10:41
DX: M16.11 Unilateral primary osteoarthritis, right hip (principal); Z94.84 Stem cells transplant status; Z94.0 Kidney transplant status; Z96.642 Presence of left artificial hip joint; F41.9 Anxiety disorder, unspecified; R00.0 Tachycardia, unspecified; K59.03 Drug induced constipation; T40.605A Adverse effect of unspecified narcotics, initial encounter; E89.0 Postprocedural hypothyroidism; Z85.850 Personal history of malignant neoplasm of thyroid; M65.88 Other synovitis and tenosynovitis, other site; M24.551 Contracture, right hip; L29.9 Pruritus, unspecified; T40.2X5A Adverse effect of other opioids, initial encounter
CPT/HCPCS: 36415; 71010; 72170; 80048; 80053; 81001; 85025; 85610; 85730; 86850; 86900; 86901; 86920; 87040; 87081; 87086; 93970; 94003; 94150; J2180; J2250; J2405